=== PATIENT | male | born 1960 | race African-American/Black ===

== ENCOUNTER 2018-05-12 11:18 | Emergency (ER) | payer BC ==
[2018-05-12] MEDS ORDERED: KETOROLAC 30 MG/ML INJ ONE (12:25)
[2018-05-12] MEDS ORDERED: MORPHINE 4 MG/ML SYR ONE (12:25)
[2018-05-12] MEDS ORDERED: ONDANSETRON 4 MG/2 ML VIAL ONE (12:25)
[2018-05-12] MEDS ORDERED: NA CHLORIDE 0.9% 500 ML ONE (12:25)
--- NOTE | 2018-05-12 12:38 | RAD REPORT ---
EXAM DESCRIPTION: CT - Head Brain Wo Cont - 05/12/2018 12:29 pm CLINICAL HISTORY: Right-sided facial pain for 3 months right-sided facial biopsy not otherwise speci fied COMPARISON: None. TECHNIQUE: Axial 5 mm thick images of the head were obtained without IV contrast. All CT scans are performed using dose optimization technique as appropriate and may include automated exposure control or mA/KV adjustment according to patient size. FINDINGS: No intracranial hemorrhage, mass, edema or shift of mid-line structures. No acute infarcti on changes seen. No abnormal extra-axial fluid collections. Ventricles are normal. Physiologic calcif ications are present. Mastoid air cells are clear. There is significant mucosal thickening in the right maxillary sinus. So ft tissue fullness in the right nasal passage is not fully imaged. This may simply be a prominent tur binate. This finding is not further characterized on this study. No globe or orbital content abnormal ity. No acute bony findings. IMPRESSION: No acute intracranial finding. Right maxillary sinus mucosal thickening. Fullness of the right nasal passage tibia prominent turbina te. Polyposis is possible. This area is only partially imaged.
[2018-05-12 12:55] LABS: Absolute Lymphocytes (CBC) 1.4 K/uL (0.7-4.9); Absolute Monocytes 0.8 K/uL (0.1-1.3); Absolute Neutrophil 3.9 K/uL (1.8-8.0); Basophils % 1.1 % (0-1.3); Eosinophils % 3.4 % (0-4.4); Hematocrit 42.1 % (39.6-49.0); MCH 31.4 pg (27.0-35.0); MCV 91.9 fL (80-100); MPV 7.9 fL (7.6-11.3); Monocytes % 12.4 % (3.3-12.3); RBC Red Blood Cell Count 4.58 M/uL (4.33-5.43)
[2018-05-12 12:57] LABS: Albumin 3.2 g/dL (3.4-5.0); Bilirubin Total 0.5 mg/dL (0.2-1.0); Potassium 4.4 mmol/L (3.5-5.1); Protein, Total 6.6 g/dL (6.4-8.2)
--- NOTE | 2018-05-12 13:28 | EDPHYS ---
Physician Documentation [facility] Name: Luis Humphreys Age: 57 yrs Sex: Male : 1960 Arrival Date: 05/12/2018 Time: 11:21 Bed 28 Private MD: ED Physician Gurpreet Valdez HPI: 05/12 12:09 This 57 yrs old Black Male presents to ER via Ambulatory with complaints of Facial Pain.emil 12:09 The patient or guardian reports pain, tenderness. The complaints affect the right emil cheek, right ear, right cheondoism and right jaw. Onset: The symptoms/episode began/occurred 5 month(s) ago. Associated signs and symptoms: The patient has no apparent associated signs or symptoms. Severity of symptoms: At their worst the symptoms were mild, moderate, in the emergency department the symptoms are unchanged. The patient has not experienced similar symptoms in the past. Historical: - Allergies: 11:30 No Known Allergies; jl7 - Home Meds: 11:30 None [Active]; jl7 - PMHx: 11:30 Asthma; jl7 - PSHx: 11:30 None; jl7 - Immunization history:: Adult Immunizations unknown. - Social history:: Smoking status: Patient uses tobacco products, Quit about a week ago. - Ebola Screening: : No symptoms or risks identified at this time. - Family history:: not pertinent. ROS: 12:09 Constitutional: Negative for fever, chills, and weight loss, Eyes: Negative for injury, emil pain, redness, and discharge, ENT: Negative for injury, pain, and discharge, Neck: Negative for injury, pain, and swelling, Cardiovascular: Negative for chest pain, palpitations, and edema, Respiratory: Negative for shortness of breath, cough, wheezing, and pleuritic chest pain, Abdomen/GI: Negative for abdominal pain, nausea, vomiting, diarrhea, and constipation, Back: Negative for injury and pain, : Negative for injury, bleeding, discharge, and swelling, MS/Extremity: Negative for injury and deformity, Skin: Negative for injury, rash, and discoloration, Psych: Negative for depression, anxiety, suicide ideation, homicidal ideation, and hallucinations, Allergy/Immunology: Negative for hives, rash, and allergies, Endocrine: Negative for neck swelling, polydipsia, polyuria, polyphagia, and marked weight changes, Hematologic/Lymphatic: Negative for swollen nodes, abnormal bleeding, and unusual bruising. 12:09 Neuro: Positive for headache, of the right jaw and right cheondoism and right ear and right cheek. Exam: 12:09 Constitutional: This is a well developed, well nourished patient who is awake, alert, emil and in no acute distress. Eyes: Pupils equal round and reactive to light, extra-ocular motions intact. Lids and lashes normal. Conjunctiva and sclera are non-icteric and not injected. Cornea within normal limits. Periorbital areas with no swelling, redness, or edema. ENT: Nares patent. No nasal discharge, no septal abnormalities noted. Tympanic membranes are normal and external auditory canals are clear. Oropharynx with no redness, swelling, or masses, exudates, or evidence of obstruction, uvula midline. Mucous membranes moist. Neck: Trachea midline, no thyromegaly or masses palpated, and no cervical lymphadenopathy. Supple, full range of motion without nuchal rigidity, or vertebral point tenderness. No Meningismus. Chest/axilla: Normal chest wall appearance and motion. Nontender with no deformity. No lesions are appreciated. Cardiovascular: Regular rate and rhythm with a normal S1 and S2. No gallops, murmurs, or rubs. Normal PMI, no JVD. No pulse deficits. Respiratory: Lungs have equal breath sounds bilaterally, clear to auscultation and percussion. No rales, rhonchi or wheezes noted. No increased work of breathing, no retractions or nasal flaring. Abdomen/GI: Soft, non-tender, with normal bowel sounds. No distension or tympany. No guarding or rebound. No evidence of tenderness throughout. Back: No spinal tenderness. No costovertebral tenderness. Full range of motion. Male : Normal genitalia with no discharge or lesions. Skin: Warm, dry with normal turgor. Normal color with no rashes, no lesions, and no evidence of cellulitis. MS/ Extremity: Pulses equal, no cyanosis. Neurovascular intact. Full, normal range of motion. Neuro: Awake and alert, GCS 15, oriented to person, place, time, and situation. Cranial nerves II-XII grossly intact. Motor strength 5/5 in all extremities. Sensory grossly intact. Cerebellar exam normal. Normal gait. Psych: Awake, alert, with orientation to person, place and time. Behavior, mood, and affect are within normal limits. 12:09 Head/face: Noted is tenderness, Sinus tenderness, is not appreciated. Vital Signs: 11:30 BP 118 / 67; Pulse 78; Resp 16 S; Temp 98.3(O); Pulse Ox 98% on R/A; Weight 104.33 kg jl7 (R); Height 6 ft. 1 in. (185.42 cm) (R); Pain 9/10; 12:35 BP 132 / 63; Pulse 55; Resp 16; Pulse Ox 97% on R/A; aj 13:40 BP 116 / 72; Pulse 62; Resp 15; Pulse Ox 99% on R/A; aj 11:30 Body Mass Index 30.34 (104.33 kg, 185.42 cm) jl7 Rylee Coma Score: 12:09 Eye Response: spontaneous(4). Verbal Response: oriented(5). Motor Response: obeys [facility] commands(6). Total: 15. MDM: 11:33 Patient medically screened. [facility] 12:12 Data reviewed: vital signs, nurses notes, lab test result(s), EKG, radiologic studies, [facility] CT scan, plain films. 05/12 12:06 Order name: CBC with Diff [facility] 05/12 12:06 Order name: Comprehensive Metabolic Panel; Complete Time: 13:27 [facility] 05/12 12:06 Order name: Sed Rate [facility] 05/12 12:06 Order name: CT Head Brain wo Cont; Complete Time: 13:27 [facility] 05/12 12:59 Order name: CBC Smear Scan EDMD 05/12 13:27 Order name: PO challenge: juice; Complete Time: 13:28 [facility] Administered Medications: 12:34 Drug: morphine 2 mg Route: IVP; Site: right antecubital; aj 12:50 Follow up: Response: Pain is decreased aj 12:34 Drug: Zofran 4 mg Route: IVP; Site: right antecubital; aj 12:50 Follow up: Response: Pain is decreased aj 12:34 Drug: TORadol 30 mg Route: IVP; Site: right antecubital; aj 12:50 Follow up: Response: Pain is decreased aj 12:35 Drug: NS 0.9% 500 ml Route: IV; Rate: bolus; Site: right antecubital; aj 13:42 Follow up: Response: No adverse reaction; IV Status: Completed infusion; IV Intake: aj 500ml 12:35 Drug: morphine 2 mg Route: IVP; Site: right antecubital; aj 12:49 Follow up: Response: Pain is decreased aj 13:40 Drug: TEGretol 200 mg Route: PO; aj 13:40 Follow up: Response: Medication administered at discharge. aj Disposition: 05/12/18 13:28 Discharged to Home. Impression: Headache, Trigeminal neuralgia. - Condition is Stable. - Discharge Instructions: General Headache Without Cause, Hypoglycemia, Neuropathic Pain, Trigeminal Neuralgia, General Headache Without Cause, [id number], Hypoglycemia, [id number]. - Prescriptions for gabapentin 300 mg Oral capsule - take 1 capsule by ORAL route 3 times per day; 90 capsule. Tegretol 200 mg Oral Tablet - take 1 tablet by ORAL route every 12 hours; 30 tablet. Tylenol- Codeine #3 300-30 mg Oral Tablet - take 2 tablet by ORAL route every 6 hours As needed; 30 tablet. - Medication Reconciliation Form, Thank You Letter, Antibiotic Education, Prescription Opioid Use form. - Follow up: Private Physician; When: 2 - 3 days; Reason: Recheck today's complaints, Continuance of care, Re-evaluation by your physician. Follow up: Leighton Vyas; When: 2 - 3 days; Reason: Recheck today's complaints, Re-evaluation by your physician. - Problem is new. - Symptoms have improved. Signatures: Dispatcher [employer] EDCherelle Hayden RN RN aj Anderson, Corey, MD MD cha Leal, Jahala, RN RN jl7 Corrections: (The following items were deleted from the chart) 13:42 13:28 05/12/2018 13:28 Discharged to Home. Impression: Headache; Trigeminal neuralgia. aj Condition is Stable. Discharge Instructions: General Headache Without Cause, Neuropathic Pain, Trigeminal Neuralgia, General Headache Without Cause, [id number]. Prescriptions for gabapentin 300 mg Oral capsule - take 1 capsule by ORAL route 3 times per day; 90 capsule, Tegretol 200 mg Oral Tablet - take 1 tablet by ORAL route every 12 hours; 30 tablet, Tylenol-Codeine #3 300-30 mg Oral Tablet - take 2 tablet by ORAL route every 6 hours As needed; 30 tablet. and Forms are Medication Reconciliation Form, Thank You Letter, Antibiotic Education, Prescription Opioid Use. Follow up: Private Physician; When: 2 - 3 days; Reason: Recheck today's complaints, Continuance of care, Re-evaluation by your physician. Follow up: Leighton Vyas; When: 2 - 3 days; Reason: Recheck today's complaints, Re-evaluation by your physician. Problem is new. Symptoms have improved. emil
--- NOTE | 2018-05-12 13:28 | ER ---
Nurse's Notes [facility] Name: Luis Humphreys Age: 57 yrs Sex: Male : 1960 Arrival Date: 05/12/2018 Time: 11:21 Bed 28 Private MD: Diagnosis: Headache;Trigeminal neuralgia Presentation: 05/12 11:25 Presenting complaint: Patient states: C/O right sided face pain x 3 months, throbbing jl7 pain. Had teeth pulled on that side. Had a biopsy done by an oral surgeon in [place]. Transition of care: patient was not received from another setting of care. Onset of symptoms was January 2018. Risk Assessment: Do you want to hurt yourself or someone else? Patient reports no desire to harm self or others. Initial Sepsis Screen: Does the patient meet any 2 criteria? No. Patient's initial sepsis screen is negative. Does the patient have a suspected source of infection? No. Patient's initial sepsis screen is negative. Care prior to arrival: None. 11:25 Method Of Arrival: Ambulatory [facility] 11:25 Acuity: GERALD 4 jl7 Historical: - Allergies: 11:30 No Known Allergies; jl7 - Home Meds: 11:30 None [Active]; jl7 - PMHx: 11:30 Asthma; jl7 - PSHx: 11:30 None; jl7 - Immunization history:: Adult Immunizations unknown. - Social history:: Smoking status: Patient uses tobacco products, Quit about a week ago. - Ebola Screening: : No symptoms or risks identified at this time. - Family history:: not pertinent. Screenin:30 Abuse screen: Denies threats or abuse. Denies injuries from another. Nutritional aj screening: No deficits noted. Tuberculosis screening: No symptoms or risk factors identified. Fall Risk None identified. Assessment: 12:27 General: Appears in no apparent distress. comfortable, Behavior is calm, cooperative, aj appropriate for age. Pain: Complains of pain in right jaw Pain began 2 months ago Is intermittent, Aggravated by eating, drinking, cold. Neuro: Level of Consciousness is awake, alert, obeys commands, Oriented to person, place, time, situation. Cardiovascular: Denies chest pain. Respiratory: Airway is patent Respiratory effort is even, unlabored, Respiratory pattern is regular, symmetrical. GI: No signs and/or symptoms were reported involving the gastrointestinal system. Abdomen is flat. EENT: Reports pain in right jaw. Derm: Skin is intact, is healthy with good turgor, Skin is pink, warm \T\ dry. normal. 13:40 Reassessment: Patient appears in no apparent distress at this time. No changes from aj previously documented assessment. Patient and/or family updated on plan of care and expected duration. Pain level reassessed. Patient resting comfortably in bed with eyes closed upon my entering the room for discharge. Vital Signs: 11:30 BP 118 / 67; Pulse 78; Resp 16 S; Temp 98.3(O); Pulse Ox 98% on R/A; Weight 104.33 kg jl7 (R); Height 6 ft. 1 in. (185.42 cm) (R); Pain 9/10; 12:35 BP 132 / 63; Pulse 55; Resp 16; Pulse Ox 97% on R/A; aj 13:40 BP 116 / 72; Pulse 62; Resp 15; Pulse Ox 99% on R/A; aj 11:30 Body Mass Index 30.34 (104.33 kg, 185.42 cm) jl7 [place] Coma Score: 12:09 Eye Response: spontaneous(4). Verbal Response: oriented(5). Motor Response: obeys emil commands(6). Total: 15. ED Course: 11:21 Patient arrived in ED. mr 11:29 Triage completed. jl7 11:30 Arm band placed on right wrist. jl7 11:32 Gurpreet Valdez MD is Attending Physician. emil 12:18 Cherelle Bocanegra, JEAN PAUL is Primary Nurse. 12:24 CT completed. Patient tolerated procedure well. Patient moved to CT via wheelchair. Patient moved back from CT. 12:29 CT Head Brain wo Cont In Process Unspecified. EDMS 12:30 Patient has correct armband on for positive identification. Bed in low position. Call aj light in reach. Side rails up X 1. Pulse ox on. NIBP on. 12:31 Inserted saline lock: 20 gauge in right antecubital area, using aseptic technique. aj Blood collected. 13:27 Leighton Vyas MD is Referral Physician. emil 13:40 No provider procedures requiring assistance completed. IV discontinued, intact, aj bleeding controlled, No redness/swelling at site. Pressure dressing applied. Administered Medications: 12:34 Drug: morphine 2 mg Route: IVP; Site: right antecubital; aj 12:50 Follow up: Response: Pain is decreased aj 12:34 Drug: Zofran 4 mg Route: IVP; Site: right antecubital; aj 12:50 Follow up: Response: Pain is decreased aj 12:34 Drug: TORadol 30 mg Route: IVP; Site: right antecubital; aj 12:50 Follow up: Response: Pain is decreased aj 12:35 Drug: NS 0.9% 500 ml Route: IV; Rate: bolus; Site: right antecubital; aj 13:42 Follow up: Response: No adverse reaction; IV Status: Completed infusion; IV Intake: aj 500ml 12:35 Drug: morphine 2 mg Route: IVP; Site: right antecubital; aj 12:49 Follow up: Response: Pain is decreased aj 13:40 Drug: TEGretol 200 mg Route: PO; aj 13:40 Follow up: Response: Medication administered at discharge. aj Intake: 13:42 IV: 500ml; Total: 500ml. aj Outcome: 13:28 Discharge ordered by . emil 13:40 Discharged to home ambulatory. aj 13:40 Condition: good 13:40 Discharge instructions given to patient, Instructed on discharge instructions, follow up and referral plans. medication usage, Demonstrated understanding of instructions, follow-up care, medications, Prescriptions given X 3. 13:42 Patient left the ED. aj Signatures: Dispatcher [employer] Cherelle Harper, RN Gurpreet Her MD MD cha Rivera, Maria mr Jones, Susan sj Leal, Jahala, RN RN jl7
[2018-05-12] MEDS ORDERED: CARBAMAZEPINE 200 MG TAB ONE (13:39)
[2018-05-12 16:19] LABS: Blood Morphology Comment NOT SEEN (NOT SEEN); Platelet Estimate ADEQ; Urine White Blood Cell Casts OK
== END 2018-05-12 13:42 | disposition home or self-care (01) ==
LOC: ER 11:18
DX: G50.0 Trigeminal neuralgia (principal); Z87.891 Personal history of nicotine dependence
CPT/HCPCS: 36415; 70450; 80053; 85025; 85652; 96361; 96374; 96375; 99284; J2405

== ENCOUNTER 2019-09-01 11:54 | Emergency (ER) | payer BC ==
[2019-09-01 12:54] LABS: Protime INR 1.15
[2019-09-01 12:55] LABS: Hematocrit 38.8 % (39.6-49.0); Lymphocytes % 24.7 % (15.3-44.8); MPV 6.5 fL (7.6-11.3); RBC Red Blood Cell Count 4.24 M/uL (4.33-5.43)
--- NOTE | 2019-09-01 13:03 | RAD REPORT ---
EXAM DESCRIPTION: CT - Head Brain Wo Cont - 09/01/2019 12:56 pm CLINICAL HISTORY: Dementia/generalize weakness COMPARISON: 2018 TECHNIQUE: Computed axial tomography of the head was obtained. IV contrast was not requested. All CT scans are performed using dose optimization technique as appropriate and may include automated exposure control or mA/KV adjustment according to patient size. FINDINGS: An intracranial bleed is not seen . The ventricles are normal in caliber. No extra-axial fluid collection is noted. Fluid is present within the maxillary sinuses. Fluid is present within the ethmoid sinus. Mucoperiost eal thickening involves frontal sphenoid sinus. IMPRESSION: No acute intracranial abnormality is seen. If patient's symptoms persist MRI of the bra in would be recommended. Acute sinusitis
[2019-09-01 13:11] LABS: ALT/SGPT 32 U/L (12-78); AST/SGOT 19 U/L (15-37); Albumin 3.4 g/dL (3.4-5.0); Alkaline Phosphatase 102 U/L (45-117); BUN Blood Urea Nitrogen 9 mg/dL (7-18); Bicarbonate 32 mmol/L (21-32); Bilirubin Direct 0.1 mg/dL (0-0.2); Bilirubin Total 0.3 mg/dL (0.2-1.0); Glucose Level 108 mg/dL (74-106); NT PRO-BNP 21 pg/mL (<125); Potassium 4.1 mmol/L (3.5-5.1); Sodium Level 143 mmol/L (136-145); Troponin (Emerg Dept Use Only) < 0.02 ng/mL (0.0-0.045)
--- NOTE | 2019-09-01 13:14 | RAD REPORT ---
EXAM DESCRIPTION: RAD - Chest Single View - 09/01/2019 12:55 pm CLINICAL HISTORY: weakness Chest pain. COMPARISON: Chest Pa And Lat (2 Views) dated 11/23/2016; Chest Single View dated 11/23/2016; CHEST PA AND LAT 2 VIEW dated 02/13/2015 FINDINGS: Portable technique limits examination quality. The lungs are grossly clear. The heart is normal in size. No displaced fractures. IMPRESSION: No acute intrathoracic process suspected.
--- NOTE | 2019-09-01 14:24 | RAD REPORT ---
EXAM DESCRIPTION: MRI - Brain Wo Cont - 09/01/2019 2:08 pm CLINICAL HISTORY: SLURRED SPEECH COMPARISON: Head Brain Wo Cont dated 09/01/2019; Head Brain Wo Cont dated 05/12/2018 TECHNIQUE: Multi-sequence, multiplanar MR imaging of the brain was performed without contrast. FINDINGS: No intracranial hemorrhage, hydrocephalus or extra-axial fluid collections.Minimal T2 and FLAIR hyperintensity in the periventricular and deep white matter seen. No edema or shift of midline structures. No findings to suspect brain mass. DWI is negative for acute CVA. Midline structures are normally formed. Moderate mucoperiosteal thickening is seen involving the frontal, anterior ethmoid and maxillary sinu ses. IMPRESSION: No acute CVA or other acute intracranial abnormality detected. Moderate sinus disease is seen.
--- NOTE | 2019-09-01 14:43 | ER ---
Nurse's Notes [facility] [place] Name: Luis Humphreys Age: 58 yrs Sex: Male : 1960 Arrival Date: 09/01/2019 Time: 11:58 Bed 30 Private MD: Diagnosis: Paresthesia of skin Presentation: 09/01 12:04 Presenting complaint: Patient states: Weakness to both legs and slurred speech for the aj1 past week, states that the symptoms come and go. Transition of care: patient was not received from another setting of care. Onset of symptoms was 2018. Risk Assessment: Do you want to hurt yourself or someone else? Patient reports no desire to harm self or others. Initial Sepsis Screen: Does the patient meet any 2 criteria? No. Patient's initial sepsis screen is negative. Does the patient have a suspected source of infection? No. Patient's initial sepsis screen is negative. Care prior to arrival: None. 12:04 Method Of Arrival: Ambulatory aj1 12:04 Acuity: GERALD 3 aj1 Triage Assessment: 12:08 General: Appears in no apparent distress. comfortable, Behavior is calm, cooperative. aj1 Pain: Denies pain. Neuro: Level of Consciousness is awake, alert, obeys commands, Reports weakness to both legs, intermittent slurred speech. Cardiovascular: Patient's skin is warm and dry. Respiratory: Airway is patent Respiratory effort is even, unlabored, Respiratory pattern is regular, symmetrical. Historical: - Allergies: 12:08 No Known Allergies; aj1 - Home Meds: 12:08 gabapentin 600 mg oral tab 2 tab twice daily [Active]; tramadol 50 mg Oral tab 1 tab aj1 every 6 hours [Active]; carbamazepine 100 mg Oral chew 2 tabs every 12 hours [Active]; - PMHx: 12:08 Asthma; nerve pain right side of face; aj1 - Immunization history:: Flu vaccine is not up to date. - Social history:: Smoking status: Patient/guardian denies using tobacco. - Ebola Screening: : Patient denies travel to an Ebola-affected area in the 21 days before illness onset. Screenin:40 Abuse screen: Denies threats or abuse. Nutritional screening: No deficits noted. vc Tuberculosis screening: No symptoms or risk factors identified. Fall Risk Gait- Normal/Bed Rest/Wheelchair (0 pts). Assessment: 12:40 VAN Scoring: Arm Drift: Minor drift. vc 12:40 General: Appears in no apparent distress. comfortable, Behavior is calm, cooperative. vc Pain: Denies pain. Neuro: Level of Consciousness is awake, alert, obeys commands, Oriented to person, place, time, Speech is normal, Facial symmetry appears normal. Cardiovascular: Capillary refill is sluggish in bilateral fingers. Respiratory: Airway is patent Respiratory effort is even, unlabored. GI: Abdomen is round non-distended. : No signs and/or symptoms were reported regarding the genitourinary system. EENT: No deficits noted. Derm: Skin is intact, is healthy with good turgor, Skin temperature is warm. Musculoskeletal: Range of motion: intact in all extremities. 13:00 Reassessment: Patient is alert, oriented x 3, equal unlabored respirations, skin vc warm/dry/pink. patient c/o being cold, brought blanket.. 14:20 Reassessment: Patient back from MRI. No complaints or needs at this time.. vc 15:00 Reassessment: Patient and/or family updated on plan of care and expected duration. Pain vc level reassessed. Patient denies pain at this time. 16:00 Reassessment: Patient is alert, oriented x 3, equal unlabored respirations, skin vc warm/dry/pink. Patient denies pain at this time. Patient states symptoms have not improved. Vital Signs: 12:08 BP 137 / 92; Pulse 70; Resp 18; Temp 98.5; Pulse Ox 98% on R/A; Weight 104.33 kg (R); aj1 Height 6 ft. 1 in. (185.42 cm) (R); Pain 0/10; 12:27 BP 141 / 75; Pulse 58; Resp 10; Temp 98.4(O); Pulse Ox 99% on R/A; Pain 0/10; vc 13:00 BP 143 / 66; Pulse 55; Resp 11; Temp 98.5; Pulse Ox 99% ; Pain 0/10; vc 14:22 BP 150 / 72; Pulse 51; Resp 12; Pulse Ox 98% on R/A; vc 15:00 BP 148 / 70; Pulse 55; Resp 12; Pulse Ox 96% on R/A; Pain 0/10; vc 16:00 BP 146 / 70; Pulse 53; Resp 10; Pulse Ox 100% on R/A; Pain 0/10; vc 12:08 Body Mass Index 30.34 (104.33 kg, 185.42 cm) aj1 NIH Stroke Scale Scores: 12:33 NIHSS Score: 0 la1 12:40 NIHSS Score: 0 vc ED Course: 11:58 Patient arrived in ED. mr 12:06 Triage completed. aj1 12:08 Arm band placed on Patient placed in an exam room. aj1 12:10 Malcom Post [facility]C [facility] la1 12:10 Jake Vazquez MD is Attending Physician. la1 12:20 Patient has correct armband on for positive identification. Fall risk band placed. Bed vc in low position. Call light in reach. Side rails up X 1. quality assurance monitor body on. Pulse ox on. NIBP on. Warm blanket given. 12:34 Sydnee Mena, RN is Primary Nurse. vc 12:41 Initial lab(s) drawn, by vt, sent to lab. Inserted saline lock: 20 gauge in right aa5 antecubital area, using aseptic technique. Blood collected. 12:55 XRAY Chest (1 view) In Process Unspecified. EDMS 12:55 CT Head Brain wo Cont In Process Unspecified. EDMS 13:09 EKG done, by technology specialist. reviewed by Malcom BEE. at1 13:49 Patient moved to MRI via wheelchair. em2 13:56 MRI - Brain Wo Cont In Process Unspecified. EDMS 14:42 Leighton Vyas MD is Referral Physician. la1 16:48 No provider procedures requiring assistance completed. IV discontinued, intact, vc bleeding controlled, No redness/swelling at site. Pressure dressing applied. Administered Medications: No medications were administered Outcome: 14:42 Discharge ordered by . la1 16:44 Patient left the ED. vc 16:49 Discharged to home vc 16:49 Condition: good 16:49 Discharge instructions given to patient, Instructed on discharge instructions, follow up and referral plans. Demonstrated understanding of instructions, follow-up care. NIH Stroke Scale - NIH Stroke Score Date: 09/01/2019 Time: 12:33 Total Score = 0 1a. Level of Consciousness (LOC) - 0(Alert) 1b. Level of Consciousness (LOC) (Year \T\ Age) - 0(Both) 1c. LOC Commands (Open \T\ Closes Eyes/Hand Ii Blocker) - 0(Both) 2. Best Gaze (Lateral Gaze Paresis) - 0(Normal) 3. Visual Field Loss - 0(No visual loss) 4. Facial Palsy - 0(Normal) 5a. Left Arm: Motor (10-second hold) - 0(No drift) 5b. Right Arm: Motor (10-second hold) - 0(No drift) 6a. Left Leg: Motor (5-second hold - always test supine) - 0(No drift) 6b. Right Leg: Motor (5-second hold - always test supine) - 0(No drift) 7. Limb Ataxia (finger/nose \T\ heel/cruz - test with eyes open) - 0(Absent) 8. Sensory Loss (pinprick arms/legs/face) - 0(Normal) 9. Best Language: Aphasia (description/naming/reading) - 0(No aphasia) 10. Dysarthria (speech clarity - read or repeat words) - 0(Normal) 11. Extinction and Inattention (visual/tactile/auditory/spatial/personal) - 0(No abnormality) Initials: la1 NIH Stroke Scale - NIH Stroke Score Date: 09/01/2019 Time: 12:40 Total Score = 0 1a. Level of Consciousness (LOC) - 0(Alert) 1b. Level of Consciousness (LOC) (Year \T\ Age) - 0(Both) 1c. LOC Commands (Open \T\ Closes Eyes/Hand Ii Blocker) - 0(Both) 2. Best Gaze (Lateral Gaze Paresis) - 0(Normal) 3. Visual Field Loss - 0(No visual loss) 4. Facial Palsy - 0(Normal) 5a. Left Arm: Motor (10-second hold) - 0(No drift) 5b. Right Arm: Motor (10-second hold) - 0(No drift) 6a. Left Leg: Motor (5-second hold - always test supine) - 0(No drift) 6b. Right Leg: Motor (5-second hold - always test supine) - 0(No drift) 7. Limb Ataxia (finger/nose \T\ heel/cruz - test with eyes open) - 0(Absent) 8. Sensory Loss (pinprick arms/legs/face) - 0(Normal) 9. Best Language: Aphasia (description/naming/reading) - 0(No aphasia) 10. Dysarthria (speech clarity - read or repeat words) - 0(Normal) 11. Extinction and Inattention (visual/tactile/auditory/spatial/personal) - 0(No abnormality) Initials: vc Signatures: Dispatcher [employer] Caitie Bolanos RN RN aj1 Romy Serna, JEAN PAUL Lomas RN aa5 Refugio Gallardo em2 Cherelle Siegel, qa reviewer EKG Tat1 Malcom Post FNP-[place] EXCAVATION LABORER-Cla1 Sydnee Mena RN RN vc Corrections: (The following items were deleted from the chart) 16:47 12:40 Patient has been NPO before screening. The patient is alert, and able to vc follow commands. The patient does not exhibit slurred or garbled speech. The patient is not exhibiting difficulty speaking. The patient does not exhibit difficulty understanding words. The patient is able to swallow own secretions with no drooling or need for suction. Patient tolerated one teaspoon of water. No drooling, immediate coughing, gurgling, or clearing of the throat was noted. The patient passed the bedside swallow screening. Oral medications may be given as ordered. Contact Physician for further diet orders. Provider notified of bedside swallow screening results: Malcom FINLEY-C vc 16:47 12:40 T-PA (Activase) Screening: Contraindications: Rapidly improving condition vc or minor deficit: Yes. vc 17:08 17:01 General: Appears in no apparent distress. comfortable, Behavior is calm, vc cooperative, vc 17:08 17:01 Pain: Denies pain. vc vc 17: 17:01 Neuro: Level of Consciousness is awake, alert, obeys commands, Oriented vc to person, place, time, Speech is normal, Facial symmetry appears normal, vc 17: 17:01 Cardiovascular: Capillary refill is sluggish in bilateral fingers vc vc 17:08 17:01 Respiratory: Airway is patent Respiratory effort is even, unlabored, vc vc 17:08 17:01 GI: Abdomen is round non-distended, vc vc 17: 17:01 : No signs and/or symptoms were reported regarding the genitourinary vc system. vc 17:08 17:01 EENT: No deficits noted. vc vc 17:08 17:01 Derm: Skin is intact, is healthy with good turgor, Skin temperature is vc warm vc : 17:01 Musculoskeletal: Range of motion: intact in all extremities, vc vc
--- NOTE | 2019-09-01 14:44 | EDPHYS ---
Physician Documentation [facility] Name: Luis Humphreys Age: 58 yrs Sex: Male : 1960 Arrival Date: 09/01/2019 Time: 11:58 Bed 30 Private MD: ED Physician Jake Vazquez HPI: 09/01 12:30 This 58 yrs old Black Male presents to ER via Ambulatory with complaints of Leg la1 weakness, Slurred Speech. 12:30 Onset: The symptoms/episode began/occurred 2 week(s) ago. Associated signs and la1 symptoms: Pertinent negatives: diarrhea, earache, headache, seizure. Modifying factors: The patient symptoms are alleviated by nothing, the patient symptoms are aggravated by nothing. The patient has experienced similar episodes in the past. Pt reports he has had intermittent CHEMA leg "weakness/tingling" in addition to intermittent "stuttering" for the last month. Has had a few episodes, states if he raises his voice he can hear the difference more. . Historical: - Allergies: 12:08 No Known Allergies; aj1 - Home Meds: 12:08 gabapentin 600 mg oral tab 2 tab twice daily [Active]; tramadol 50 mg Oral tab 1 tab aj1 every 6 hours [Active]; carbamazepine 100 mg Oral chew 2 tabs every 12 hours [Active]; - PMHx: 12:08 Asthma; nerve pain right side of face; aj1 - Immunization history:: Flu vaccine is not up to date. - Social history:: Smoking status: Patient/guardian denies using tobacco. - Ebola Screening: : Patient denies travel to an Ebola-affected area in the 21 days before illness onset. ROS: 12:32 Constitutional: Negative for fever, chills, and weight loss, Eyes: Negative for injury, la1 pain, redness, and discharge, ENT: Negative for injury, pain, and discharge, Neck: Negative for injury, pain, and swelling, Cardiovascular: Negative for chest pain, palpitations, and edema, Respiratory: Negative for shortness of breath, cough, wheezing, and pleuritic chest pain, Abdomen/GI: Negative for abdominal pain, nausea, vomiting, diarrhea, and constipation, Back: Negative for injury and pain, : Negative for injury, bleeding, discharge, and swelling, MS/Extremity: Negative for injury and deformity. 12:32 Neuro: Positive for speech changes, tingling, weakness, of the right leg and left leg. Exam: 12:33 Constitutional: This is a well developed, well nourished patient who is awake, alert, la1 and in no acute distress. Head/Face: Normocephalic, atraumatic. Eyes: Pupils equal round and reactive to light, extra-ocular motions intact. Periorbital areas with no swelling, redness, or edema. ENT: Nares patent. No nasal discharge, no septal abnormalities noted. Tympanic membranes are normal and external auditory canals are clear. Oropharynx with no redness, swelling, or masses, exudates, or evidence of obstruction, uvula midline. Mucous membranes moist. Neck: Trachea midline, no thyromegaly or masses palpated, and no cervical lymphadenopathy. Supple, full range of motion without nuchal rigidity, or vertebral point tenderness. No Meningismus. Chest/axilla: Normal chest wall appearance and motion. Nontender with no deformity. No lesions are appreciated. Cardiovascular: Regular rate and rhythm with a normal S1 and S2. No gallops, murmurs, or rubs. Normal PMI, no JVD. No pulse deficits. Respiratory: Lungs have equal breath sounds bilaterally, clear to auscultation No rales, rhonchi or wheezes noted. No increased work of breathing, no retractions or nasal flaring. Abdomen/GI: Soft, non-tender, with normal bowel sounds. No distension or tympany. No guarding or rebound. No evidence of tenderness throughout. 12:33 Neuro: Orientation: is normal, to person, place, time \\T\\ situation. Mentation: is normal, Memory: is normal, Cranial nerves: CN II- XII are normal as tested, visual snell are intact. Facial palsy and sensory deficits are absent. Nystagmus is absent. Speech is slowed, Tongue strength is normal, Cerebellar function: is grossly normal, normal finger to nose testing, heel to cruz testing is normal, Motor: is normal. 13:10 ECG was reviewed by the Attending Physician. la1 Vital Signs: 12:08 BP 137 / 92; Pulse 70; Resp 18; Temp 98.5; Pulse Ox 98% on R/A; Weight 104.33 kg (R); aj1 Height 6 ft. 1 in. (185.42 cm) (R); Pain 0/10; 12:27 BP 141 / 75; Pulse 58; Resp 10; Temp 98.4(O); Pulse Ox 99% on R/A; Pain 0/10; vc 13:00 BP 143 / 66; Pulse 55; Resp 11; Temp 98.5; Pulse Ox 99% ; Pain 0/10; vc 14:22 BP 150 / 72; Pulse 51; Resp 12; Pulse Ox 98% on R/A; vc 15:00 BP 148 / 70; Pulse 55; Resp 12; Pulse Ox 96% on R/A; Pain 0/10; vc 16:00 BP 146 / 70; Pulse 53; Resp 10; Pulse Ox 100% on R/A; Pain 0/10; vc 12:08 Body Mass Index 30.34 (104.33 kg, 185.42 cm) aj1 NIH Stroke Scale Scores: 12:33 NIHSS Score: 0 la1 12:40 NIHSS Score: 0 vc MDM: 12:10 Patient medically screened. la1 14:40 Data reviewed: vital signs, nurses notes, lab test result(s), EKG, radiologic studies, la1 CT scan, MRI, plain films. Counseling: I had a detailed discussion with the patient and/or guardian regarding: the historical points, exam findings, and any diagnostic results supporting the discharge/admit diagnosis, the presence of at least one elevated blood pressure reading (>120/80) during this emergency department visit, lab results, radiology results, the need for outpatient follow up, a neurologist, smoking cessation. Special discussion: I discussed with the patient/guardian in detail that at this point there is no indication for admission to the hospital. It is understood, however, that if the symptoms persist or worsen the patient needs to return immediately for re-evaluation. I discussed with the patient the need to follow-up with the PCP/specialist for the noted incidental finding on X-ray/CT scanning. ED course: Pt with normal MRI head, normal CT head, normal cardiac workup. Speech is clear, no objective weakness. Pt to FU with Dr. Vyas who he has seen in the past. 09/01 12:28 Order name: Basic Metabolic Panel; Complete Time: 13:18 la1 09/01 12:28 Order name: CBC with Diff; Complete Time: 13:12 la1 09/01 12:28 Order name: LFT's; Complete Time: 13:18 la09/01 12:28 Order name: Magnesium; Complete Time: 13:18 la09/01 12:28 Order name: NT PRO-BNP; Complete Time: 13:18 la09/01 12:28 Order name: PT-INR; Complete Time: 13:12 la09/01 12:28 Order name: Troponin (emerg Dept Use Only); Complete Time: 13:18 la09/01 12:28 Order name: XRAY Chest (1 view); Complete Time: 13:18 la09/01 12:28 Order name: EKG; Complete Time: 12:29 la09/01 12:28 Order name: Cardiac monitoring; Complete Time: 12:44 la09/01 12:28 Order name: EKG - Nurse/Tech; Complete Time: 13:09 09/01 12:28 Order name: IV Saline Lock; Complete Time: 12:44 la09/01 12:28 Order name: CT Head Brain wo Cont; Complete Time: 13:12 la09/01 13:20 Order name: MRI - Brain Wo Cont; Complete Time: 14:33 la09/01 12:28 Order name: Labs collected and sent; Complete Time: 12:44 la09/01 12:28 Order name: O2 Per Protocol; Complete Time: 12:44 la09/01 12:28 Order name: O2 Sat Monitoring; Complete Time: 12:44 la1 EC:10 Rate is 55 beats/min. Rhythm is regular. QRS [place] is Normal. NE interval is normal. QRS la1 interval is normal. QT interval is normal. T waves are Normal. No ST changes noted. Reviewed by me. Administered Medications: No medications were administered Disposition: 17:45 Co-signature as Attending Physician, Jake Vazquez MD. rn Disposition: 09/01/19 14:42 Discharged to Home. Impression: Paresthesia of skin. - Condition is Stable. - Discharge Instructions: Paresthesia, Weakness, Peripheral Neuropathy. - Medication Reconciliation Form, Thank You Letter form. - Follow up: Leighton Vyas MD; When: 2 - 3 days; Reason: Recheck today's complaints, Re-evaluation by your physician. Follow up: Emergency Department; When: As needed; Reason: Worsening of condition. - Problem is an ongoing problem. - Symptoms have improved. NIH Stroke Scale - NIH Stroke Score Date: 09/01/2019 Time: 12:33 Total Score = 0 1a. Level of Consciousness (LOC) - 0(Alert) 1b. Level of Consciousness (LOC) (Year \\T\\ Age) - 0(Both) 1c. LOC Commands (Open \\T\\ Closes Eyes/Desk Clerk) - 0(Both) 2. Best Gaze (Lateral Gaze Paresis) - 0(Normal) 3. Visual Field Loss - 0(No visual loss) 4. Facial Palsy - 0(Normal) 5a. Left Arm: Motor (10-second hold) - 0(No drift) 5b. Right Arm: Motor (10-second hold) - 0(No drift) 6a. Left Leg: Motor (5-second hold - always test supine) - 0(No drift) 6b. Right Leg: Motor (5-second hold - always test supine) - 0(No drift) 7. Limb Ataxia (finger/nose \\T\\ heel/cruz - test with eyes open) - 0(Absent) 8. Sensory Loss (pinprick arms/legs/face) - 0(Normal) 9. Best Language: Aphasia (description/naming/reading) - 0(No aphasia) 10. Dysarthria (speech clarity - read or repeat words) - 0(Normal) 11. Extinction and Inattention (visual/tactile/auditory/spatial/personal) - 0(No abnormality) Initials: la1 NIH Stroke Scale - NIH Stroke Score Date: 09/01/2019 Time: 12:40 Total Score = 0 1a. Level of Consciousness (LOC) - 0(Alert) 1b. Level of Consciousness (LOC) (Year \\T\\ Age) - 0(Both) 1c. LOC Commands (Open \\T\\ Closes Eyes/Desk Clerk) - 0(Both) 2. Best Gaze (Lateral Gaze Paresis) - 0(Normal) 3. Visual Field Loss - 0(No visual loss) 4. Facial Palsy - 0(Normal) 5a. Left Arm: Motor (10-second hold) - 0(No drift) 5b. Right Arm: Motor (10-second hold) - 0(No drift) 6a. Left Leg: Motor (5-second hold - always test supine) - 0(No drift) 6b. Right Leg: Motor (5-second hold - always test supine) - 0(No drift) 7. Limb Ataxia (finger/nose \\T\\ heel/cruz - test with eyes open) - 0(Absent) 8. Sensory Loss (pinprick arms/legs/face) - 0(Normal) 9. Best Language: Aphasia (description/naming/reading) - 0(No aphasia) 10. Dysarthria (speech clarity - read or repeat words) - 0(Normal) 11. Extinction and Inattention (visual/tactile/auditory/spatial/personal) - 0(No abnormality) Initials: vc Signatures: Dispatcher [employer] EDMS Caitie Burch, RN RN aj1 Jake Vazquez MD MD rn Sincere, Malcom, OVERNIGHT CASHIER-C OVERNIGHT CASHIER-Cla1 Sydnee Mena RN RN vc Corrections: (The following items were deleted from the chart) 14:43 14:42 09/01/2019 14:42 Discharged to Home. Impression: Paresthesia of skin. la1 Condition is Stable. Forms are Medication Reconciliation Form, Thank You Letter, Antibiotic Education, Prescription Opioid Use. Follow up: Leighton Vyas; When: 2 - 3 days; Reason: Recheck today's complaints, Re-evaluation by your physician. Follow up: Emergency Department; When: As needed; Reason: Worsening of condition. la1 16:44 14:43 09/01/2019 14:42 Discharged to Home. Impression: Paresthesia of skin. vc Condition is Stable. Forms are Medication Reconciliation Form, Thank You Letter, Antibiotic Education, Prescription Opioid Use. Follow up: Leighton Vyas; When: 2 - 3 days; Reason: Recheck today's complaints, Re-evaluation by your physician. Follow up: Emergency Department; When: As needed; Reason: Worsening of condition. Problem is an ongoing problem. Symptoms have improved. la1
[2019-09-01 18:37] VITALS: BP 137/92; TEMP 98.5; O2SAT 98
--- NOTE | 2019-09-02 06:21 | EKG ---
Test Date: 2019-09-01 Test Time: 13:01:20 Freight Engineer: JUAN MEASUREMENT RESULTS: Intervals: Rate: 55 AL: 174 QRSD: 102 QT: 394 QTc: 376 [place]: P: 78 AL: 174 QRS: 41 T: 58 INTERPRETIVE STATEMENTS: Sinus bradycardia Otherwise normal ECG Compared to ECG 10/15/2006 05:42:46 T-wave abnormality no longer present Possible ischemia no longer present Electronically Signed On 09-02-19 06:20:47 [employer] by Leroy Spangler
== END 2019-09-01 16:44 | disposition home or self-care (01) ==
LOC: ER 11:54
DX: R20.2 Paresthesia of skin (principal)
CPT/HCPCS: 36415; 70450; 70551; 71045; 80048; 80076; 83735; 83880; 84484; 85025; 85610; 93005; 99285

== ENCOUNTER 2020-05-19 18:54 | Emergency (ER) | payer BC ==
[2020-05-19] MEDS ORDERED: HYDROCODONE/APAP 10/325 TAB ONE (20:17)
[2020-05-19] MEDS ORDERED: DIAZEPAM 5 MG TABLET ONE (20:17)
--- NOTE | 2020-05-19 20:44 | RAD REPORT ---
EXAM DESCRIPTION: RAD - Lumbar Spine 3 Views - 05/19/2020 8:31 pm CLINICAL HISTORY: LOWER BACK PAIN COMPARISON: No comparisons FINDINGS: A three-view lumbar spine examination was performed. Lumbar bodies are normal in height and alignment. No fracture or acute bony process seen. No disc spa ce narrowing. Facet joint degenerative changes are present. Prominent endplate spurs are seen in the L3 and L4 bodies. No pars defects identified. Mild SI joint degenerative changes are present. IMPRESSION: Lumbar spine degenerative changes are present without an acute finding identifiable.
[2020-05-19] MEDS ORDERED: dexAMETHasone 10 MG/ML VIAL ONE (21:22)
[2020-05-19] MEDS ORDERED: KETOROLAC 30 MG/ML INJ ONE (21:23)
--- NOTE | 2020-05-19 21:40 | EDPHYS ---
Physician Documentation [facility] Name: Luis Humphreys Age: 59 yrs Sex: Male : 1960 Arrival Date: 05/19/2020 Time: 18:56 Bed 4 Private MD: ED Physician Herve De Anda HPI: 05/19 20:04 This 59 yrs old Black Male presents to ER via Ambulatory with complaints of Back Pain. [facility] 20:04 The patient presents with pain that is acute. Onset: The symptoms/episode jmm began/occurred this morning. The pain does not radiate. Associated signs and symptoms: Pertinent negatives: abdominal pain, chest pain, fever, headache, hematuria, incontinence, nausea, numbness, tingling, urinary retention, vomiting, weakness. Modifying factors: The patient symptoms are alleviated by remaining still, the patient symptoms are aggravated by movement. Historical: - Allergies: 19:32 No Known Drug Allergies; ls4 - Home Meds: 19:32 carbamazepine 100 mg Oral chew 2 tabs every 12 hours [Active]; gabapentin 600 mg Oral ls4 tab 2 tab twice daily [Active]; - PMHx: 19:32 Asthma; nerve pain right side of face; ls4 19:33 BACK PAIN; ls4 - Immunization history:: Adult Immunizations up to date. - Social history:: Smoking status: Patient reports the use of cigarette tobacco products, smokes one pack cigarettes per day. Patient uses alcohol, only on a social basis. ROS: 20:04 Constitutional: Negative for fever, chills, and weight loss, Cardiovascular: Negative jm for chest pain, palpitations, and edema, Respiratory: Negative for shortness of breath, cough, wheezing, and pleuritic chest pain, Abdomen/GI: Negative for abdominal pain, nausea, vomiting, diarrhea, and constipation. 20:04 Back: Positive for pain with movement. 20:04 All other systems are negative. Exam: 20:04 Constitutional: This is a well developed, well nourished patient who is awake, alert, jmm and in no acute distress. Head/Face: atraumatic. Eyes: EOMI, no conjunctival erythema appreciated ENT: Moist Mucus Membranes Neck: Trachea midline, Supple Chest/axilla: Normal chest wall appearance and motion. Cardiovascular: Regular rate and rhythm. No edema appreciated Respiratory: Normal respirations, no respiratory distress appreciated Abdomen/GI: Non distended, soft 20:04 Skin: General appearance color normal MS/ Extremity: Moves all extremities, no obvious deformities appreciated, no edema noted to the lower extremities Neuro: Awake and alert, normal gait Psych: Behavior is normal, Mood is normal, Patient is cooperative and pleasant 20:04 Back: pain, that is mild, of the right low back, vertebral tenderness, is not appreciated. Vital Signs: 19:29 BP 151 / 80; Pulse 70; Resp 16; Pulse Ox 99% on R/A; Weight 106.59 kg; Height 6 ft. 1 ls4 in. (185.42 cm); Pain 10/10; 20:13 BP 143 / 75; Pulse 55; Resp 18; Pulse Ox 98% on R/A; lp1 19:29 Body Mass Index 31.00 (106.59 kg, 185.42 cm) ls4 MDM: 20:03 Patient medically screened. [facility] 21:36 Data reviewed: vital signs, nurses notes. Counseling: I had a detailed discussion with [facility] the patient and/or guardian regarding: the historical points, exam findings, and any diagnostic results supporting the discharge/admit diagnosis, radiology results, the need for outpatient follow up, to return to the emergency department if symptoms worsen or persist or if there are any questions or concerns that arise at home. ED course: Pain is slightly reduced in the ED. Patient is able to ambulate. Patient is afebrile. I do not suspect cord compression, cauda equina, spinal abscess, pyelonephritis. Patient is advised to follow up with pcp and otherwise given strict return precautions. Patient understood and agrees with the plan of care. . 05/19 20:04 Order name: Lumbar Spine (3 Views) XRAY; Complete Time: 20:47 [facility] Administered Medications: 20:06 Drug: [place] 10 mg-325 mg 1 tabs Route: PO; lp1 21:34 Follow up: Response: No change in condition lp1 20:06 Drug: Valium 5 mg Route: PO; lp1 21:34 Follow up: Response: No change in condition lp1 21:15 Drug: Ketorolac 30 mg Route: IM; Site: right deltoid; lp1 21:54 Follow up: Response: No adverse reaction lp1 21:15 Drug: Dexamethasone 10 mg Route: IM; Site: right deltoid; lp1 21:54 Follow up: Response: No adverse reaction lp1 Disposition: 05/20 05:57 Co-signature as Attending Physician, Herve De Anda MD. [email or web address] Disposition: 05/19/20 21:40 Discharged to Home. Impression: Low back pain. - Condition is Stable. - Discharge Instructions: Back Pain, Adult. - Prescriptions for orphenadrine citrate 100 mg Oral Tablet Sustained Release - take 1 tablet by ORAL route 2 times per day As needed; 20 tablet. - Medication Reconciliation Form, Thank You Letter, Antibiotic Education, Prescription Opioid Use form. - Follow up: Private Physician; When: 2 - 3 days; Reason: Recheck today's complaints, Continuance of care, Re-evaluation by your physician. Signatures: Dispatcher [employer] EDMS Mukund Mariee PA PA jmm Pena, Laura, RN RN lp1 Tatiana Renee RN RN ls4 Herve De Anda MD MD [email or web address] Corrections: (The following items were deleted from the chart) 05/19 22:03 21:40 05/19/2020 21:40 Discharged to Home. Impression: Low back pain. Condition is lp1 Stable. Forms are Medication Reconciliation Form, Thank You Letter, Antibiotic Education, Prescription Opioid Use. Follow up: Private Physician; When: 2 - 3 days; Reason: Recheck today's complaints, Continuance of care, Re-evaluation by your physician. ericka
--- NOTE | 2020-05-19 21:40 | ER ---
Nurse's Notes [facility] Name: Luis Humphreys Age: 59 yrs Sex: Male : 1960 Arrival Date: 05/19/2020 Time: 18:56 Bed 4 Private MD: Diagnosis: Low back pain Presentation: 05/19 19:29 Chief complaint: Patient states: WOKE UP THIS MORNING AND MY BACK IS HURTING. GOT WORSE ls4 DAY WHEN ON. TOOK 2 BACK AND BODY PILLS. Coronavirus screen: At this time, the client does not indicate any symptoms associated with coronavirus-19. Ebola Screen: No symptoms or risks identified at this time. Initial Sepsis Screen: Does the patient meet any 2 criteria? No. Patient's initial sepsis screen is negative. Does the patient have a suspected source of infection? No. Patient's initial sepsis screen is negative. Risk Assessment: Do you want to hurt yourself or someone else? Patient reports no desire to harm self or others. Onset of symptoms was May 19, 2020 at 08:00. Care prior to arrival: Medication(s) given: LILIYA BACK AND BODY X 2. Activity prior to arrival: None. 19:29 Method Of Arrival: Ambulatory ls4 19:29 Acuity: GERALD 4 ls4 Historical: - Allergies: 19:32 No Known Drug Allergies; ls4 - Home Meds: 19:32 carbamazepine 100 mg Oral chew 2 tabs every 12 hours [Active]; gabapentin 600 mg Oral ls4 tab 2 tab twice daily [Active]; - PMHx: 19:32 Asthma; nerve pain right side of face; ls4 19:33 BACK PAIN; ls4 - Immunization history:: Adult Immunizations up to date. - Social history:: Smoking status: Patient reports the use of cigarette tobacco products, smokes one pack cigarettes per day. Patient uses alcohol, only on a social basis. Screenin:33 Abuse screen: Denies threats or abuse. Denies injuries from another. Nutritional ls4 screening: No deficits noted. Tuberculosis screening: No symptoms or risk factors identified. Fall Risk None identified. Assessment: 20:12 General: Appears in no apparent distress. Behavior is calm, cooperative, appropriate lp1 for age. Pain: Complains of pain in lumbar area and right mid back Pain currently is 7 out of 10 on a pain scale. Quality of pain is described as aching. Neuro: Level of Consciousness is awake, alert, obeys commands, Oriented to person, place, time, situation. Cardiovascular: Patient's skin is warm and dry. Respiratory: Respiratory effort is even, unlabored. GI: No signs and/or symptoms were reported involving the gastrointestinal system. : No signs and/or symptoms were reported regarding the genitourinary system. EENT: No signs and/or symptoms were reported regarding the EENT system. Derm: Skin is intact, Skin is dry, Skin is normal. Musculoskeletal: Circulation, motion, and sensation intact. Reports pain in lumbar area and right mid back. 21:15 Reassessment: Patient appears in no apparent distress at this time. Patient states lp1 continued back pain on movement; no relief from medications administered. 21:54 Reassessment: Patient appears in no apparent distress at this time. Patient is alert, lp1 oriented x 3, equal unlabored respirations, skin warm/dry/pink. Patient demonstrates understanding of discharge instructions; waiting for ride home at this time. Vital Signs: 19:29 BP 151 / 80; Pulse 70; Resp 16; Pulse Ox 99% on R/A; Weight 106.59 kg; Height 6 ft. 1 ls4 in. (185.42 cm); Pain 10/10; 20:13 BP 143 / 75; Pulse 55; Resp 18; Pulse Ox 98% on R/A; lp1 19:29 Body Mass Index 31.00 (106.59 kg, 185.42 cm) ls4 ED Course: 18:56 Patient arrived in ED. ds1 19:32 Triage completed. ls4 19:34 Mukund Mariee PA is PHCP. [facility] 19:34 Herve De Anda MD is Attending Physician. [facility] 19:56 Maris Del Real, JEAN PAUL is Primary Nurse. lp1 20:13 Arm band placed on. lp1 20:13 Patient has correct armband on for positive identification. lp1 20:25 Lumbar Spine (3 Views) XRAY In Process Unspecified. EDMS 21:34 No provider procedures requiring assistance completed. Patient did not have IV access lp1 during this emergency room visit. Administered Medications: 20:06 Drug: [place] 10 mg-325 mg 1 tabs Route: PO; lp1 21:34 Follow up: Response: No change in condition lp1 20:06 Drug: Valium 5 mg Route: PO; lp1 21:34 Follow up: Response: No change in condition lp1 21:15 Drug: Ketorolac 30 mg Route: IM; Site: right deltoid; lp1 21:54 Follow up: Response: No adverse reaction lp1 21:15 Drug: Dexamethasone 10 mg Route: IM; Site: right deltoid; lp1 21:54 Follow up: Response: No adverse reaction lp1 Outcome: 21:40 Discharge ordered by . ericka 21:53 Discharged to home via wheelchair, with family. lp1 21:53 Condition: good 21:53 Discharge instructions given to patient, Instructed on discharge instructions, follow up and referral plans. medication usage, Demonstrated understanding of instructions, follow-up care, medications, Prescriptions given X 1. 22:03 Patient left the ED. lp1 Signatures: Dispatcher [employer] EDMS Mukund Mariee PA PA jmm Sanford, Demi ds1 Maris Del Real RN RN lp1 Tatiana Renee RN RN ls4
[2020-05-19 22:24] VITALS: BP 143/75; O2SAT 98
== END 2020-05-19 22:03 | disposition home or self-care (01) ==
LOC: ER 18:54
DX: M54.5 Low back pain (principal); F17.210 Nicotine dependence, cigarettes, uncomplicated
CPT/HCPCS: 72100; 96372; 99283; J1100

== ENCOUNTER 2020-05-28 14:38 | Emergency (ER) | payer BC ==
[2020-05-28] MEDS ORDERED: HYDROCODONE/APAP 7.5/325 MG TAB ONE (15:30)
--- NOTE | 2020-05-28 16:01 | RAD REPORT ---
EXAM DESCRIPTION: RAD - Hip Right 2 View - 05/28/2020 3:33 pm CLINICAL HISTORY: PAIN COMPARISON: No comparisons FINDINGS: AP and frog-leg views of the right hip were obtained. There is no fracture or dislocation. No AVN or focal head abnormality. No acute or destructive bony p rocess seen. No significant degenerative change seen. IMPRESSION: Negative right hip examination for acute or significant findings.
--- NOTE | 2020-05-28 16:08 | ER ---
Nurse's Notes [facility] Name: Luis Humphreys Age: 59 yrs Sex: Male : 1960 Arrival Date: 05/28/2020 Time: 14:41 Bed 8 Private MD: Diagnosis: Sciatica, right side Presentation: 05/28 14:57 Chief complaint: Patient states: low back pain with radiation to the right hip x 2 sv weeks. Seen here about a week ago for the same thing, sent home with prescriptions with no relief. Denies dysuria. Coronavirus screen: Client denies travel out of the [place] in the last 14 days. At this time, the client does not indicate any symptoms associated with coronavirus-19. Ebola Screen: No symptoms or risks identified at this time. Initial Sepsis Screen: Does the patient meet any 2 criteria? No. Patient's initial sepsis screen is negative. Does the patient have a suspected source of infection? No. Patient's initial sepsis screen is negative. Risk Assessment: Do you want to hurt yourself or someone else? Patient reports no desire to harm self or others. Onset of symptoms was April 2020. 14:57 Method Of Arrival: Wheelchair sv 14:57 Acuity: GERALD 4 sv Triage Assessment: 14:57 General: Appears in no apparent distress. uncomfortable, well developed, Behavior is sv calm, cooperative, appropriate for age. Pain: Complains of pain in right low back Pain radiates to right leg Pain currently is 10 out of 10 on a pain scale. Pain began 2 weeks ago Is continuous, Aggravated by increased activity. Neuro: Level of Consciousness is awake, alert, obeys commands, Oriented to person, place, time, situation, Moves all extremities. Full function Gait is steady, with his cane. Respiratory: Airway is patent Respiratory effort is even, unlabored, Respiratory pattern is regular, symmetrical. Derm: Skin is intact, Skin is pink, warm \T\ dry. Musculoskeletal: Range of motion: intact in all extremities. Historical: - Allergies: 14:59 No Known Allergies; sv - PMHx: 14:59 Asthma; Back pain; nerve pain right side of face; sv - PSHx: 14:59 None; sv - Immunization history:: Adult Immunizations up to date. - Social history:: Smoking status: . Screenin:59 Abuse screen: Denies threats or abuse. Denies injuries from another. Nutritional sv screening: No deficits noted. Tuberculosis screening: No symptoms or risk factors identified. Fall Risk None identified. Assessment: 15:22 Reassessment: Patient appears in no apparent distress at this time. No changes from sv previously documented assessment. Patient and/or family updated on plan of care and expected duration. Pain level reassessed. Patient is alert, oriented x 3, equal unlabored respirations, skin warm/dry/pink. 16:45 Reassessment: Patient appears in no apparent distress at this time. No changes from sv previously documented assessment. Patient and/or family updated on plan of care and expected duration. Pain level reassessed. Patient is alert, oriented x 3, equal unlabored respirations, skin warm/dry/pink. Vital Signs: 14:56 BP 164 / 74; Pulse 50; Resp 16; Temp 98.5(O); Pulse Ox 100% on R/A; Weight 104.33 kg; dh3 Height 6 ft. 1 in. (185.42 cm); Pain 10/10; 15:30 BP 160 / 77; Pulse 48; Resp 18; Pulse Ox 100% ; sv 16:00 BP 176 / 77; Pulse 45; Resp 16; Pulse Ox 100% ; sv 16:44 BP 168 / 74; Pulse 46; Resp 16; Pulse Ox 100% ; sv 14:56 Body Mass Index 30.34 (104.33 kg, 185.42 cm) 3 ED Course: 14:41 Patient arrived in ED. mr 14:52 Breana Mcrae, JEAN PAUL is Primary Nurse. sv 14:52 Arm band placed on Patient placed in an exam room, on a stretcher. sv 14:58 Triage completed. sv 14:59 Patient has correct armband on for positive identification. Bed in low position. Call sv light in reach. Pulse ox on. NIBP on. Door closed. Head of bed elevated. 15:00 Nahomi Delgadillo FNP-C is PHCP. kb 15:00 Doni Key MD is Attending Physician. kb 15:12 Nurse Practitioner and/or Physician Industrial Sociologist to see patient. sv 15:22 Awaiting for x-ray. sv 15:29 X-ray(s) taken. sv 15:30 Hip Right 2 View XRAY In Process Unspecified. EDMS 16:45 No provider procedures requiring assistance completed. Patient did not have IV access sv during this emergency room visit. Administered Medications: 15:21 Drug: [place] (7.5 mg-325 mg) 1 tabs {Note: rass2.} Route: PO; sv 16:44 Follow up: Response: No adverse reaction; RASS: Alert and Calm (0) sv Outcome: 16:08 Discharge ordered by MD. sullivan 16:45 Discharged to home ambulatory, with his cane sv 16:45 Condition: stable 16:45 Discharge instructions given to patient, Instructed on discharge instructions, follow up and referral plans. medication usage, Demonstrated understanding of instructions, follow-up care, medications, Prescriptions given X 2. 16:46 Patient left the ED. sv Signatures: Dispatcher [employer] EDIL Nahomi Delgadillo, ROHIT FINLEY-Breana Morgan RN RN Romy Knapp mr Escudero, Norma 3 Corrections: (The following items were deleted from the chart) 15:12 15:12 Respiratory care therapist to see patient. sv sv
--- NOTE | 2020-05-28 16:08 | EDPHYS ---
Physician Documentation [facility] Name: Luis Humphreys Age: 59 yrs Sex: Male : 1960 Arrival Date: 05/28/2020 Time: 14:41 Bed 8 Private MD: ED Physician Doni Key HPI: 05/28 15:19 This 59 yrs old Black Male presents to ER via Wheelchair with complaints of Back Pain. kb 15:19 The patient presents with pain that is acute, with no known mechanism of injury. The kb symptoms are located in the right low back. Onset: The symptoms/episode began/occurred 2 week(s) ago. The pain radiates to the lateral aspect of right thigh. Associated signs and symptoms: Pertinent positives: none Pertinent negatives: abdominal pain, constipation, dysuria, fever, hematuria, incontinence, nausea, numbness, tingling, urinary retention, weakness. The problem was sustained without known cause. Modifying factors: The patient symptoms are alleviated by nothing, the patient symptoms are aggravated by any movement. Severity of symptoms: At their worst the symptoms were moderate, in the emergency department the symptoms are unchanged. The patient has not experienced similar symptoms in the past. The patient has been recently seen at the [facility], last week, for similar complaints X-rays were performed, was given a prescription for pain medications. Pt reports right low back pain for 2 weeks. States he woke up with the pain one morning, denies injury or trauma. Pain worse after resting and getting back up, "feels stiff." . Historical: - Allergies: 14:59 No Known Allergies; sv - PMHx: 14:59 Asthma; Back pain; nerve pain right side of face; sv - PSHx: 14:59 None; sv - Immunization history:: Adult Immunizations up to date. - Social history:: Smoking status: . ROS: 15:14 Constitutional: Negative for fever, chills, and weight loss, Cardiovascular: Negative kb for chest pain, palpitations, and edema, Respiratory: Negative for shortness of breath, cough, wheezing, and pleuritic chest pain, Abdomen/GI: Negative for abdominal pain, nausea, vomiting, diarrhea, and constipation, : Negative for injury, bleeding, discharge, and swelling, MS/Extremity: Negative for injury and deformity, Skin: Negative for injury, rash, and discoloration, Neuro: Negative for headache, weakness, numbness, tingling, and seizure. 15:14 Back: 15:14 Back: Positive for pain at rest, pain with movement, radiated pain, Negative for injury or acute deformity, decreased range of motion. Exam: 15:15 Constitutional: This is a well developed, well nourished patient who is awake, alert, kb and in no acute distress. Head/Face: Normocephalic, atraumatic. Chest/axilla: Normal chest wall appearance and motion. Nontender with no deformity. No lesions are appreciated. Cardiovascular: Regular rate and rhythm with a normal S1 and S2. No gallops, murmurs, or rubs. Normal PMI, no JVD. No pulse deficits. Respiratory: Lungs have equal breath sounds bilaterally, clear to auscultation and percussion. No rales, rhonchi or wheezes noted. No increased work of breathing, no retractions or nasal flaring. Abdomen/GI: Soft, non-tender, with normal bowel sounds. No distension or tympany. No guarding or rebound. No evidence of tenderness throughout. Skin: Warm, dry with normal turgor. Normal color with no rashes, no lesions, and no evidence of cellulitis. MS/ Extremity: Pulses equal, no cyanosis. Neurovascular intact. Full, normal range of motion. Neuro: Awake and alert, GCS 15, oriented to person, place, time, and situation. Cranial nerves II-XII grossly intact. Motor strength 5/5 in all extremities. Sensory grossly intact. Cerebellar exam normal. Normal gait. 15:15 Back: pain, that is moderate, of the right low back, ROM is painful, with rotation to the right, normal spinal alignment noted, CVA tenderness, is absent, vertebral tenderness, is not appreciated. Vital Signs: 14:56 BP 164 / 74; Pulse 50; Resp 16; Temp 98.5(O); Pulse Ox 100% on R/A; Weight 104.33 kg; dh3 Height 6 ft. 1 in. (185.42 cm); Pain 10/10; 15:30 BP 160 / 77; Pulse 48; Resp 18; Pulse Ox 100% ; sv 16:00 BP 176 / 77; Pulse 45; Resp 16; Pulse Ox 100% ; sv 16:44 BP 168 / 74; Pulse 46; Resp 16; Pulse Ox 100% ; sv 14:56 Body Mass Index 30.34 (104.33 kg, 185.42 cm) dh3 MDM: 15:00 Patient medically screened. kb 15:17 Data reviewed: vital signs, nurses notes. Data interpreted: Pulse oximetry: on room air kb is 100 %. Interpretation: normal. ED course: Pt denies urinary symptoms, fever, abd pain. Pain and tenderness is to right upper buttock with radiation to right hip and mid thigh. Lumbar spine x-ray completed during last visit and was negative for acute findings. Will x-ray hip at this time and give medication for pain control. . 16:04 Counseling: I had a detailed discussion with the patient and/or guardian regarding: the kb historical points, exam findings, and any diagnostic results supporting the discharge/admit diagnosis, radiology results, the need for outpatient follow up, a family practitioner, to return to the emergency department if symptoms worsen or persist or if there are any questions or concerns that arise at home. 05/28 15:11 Order name: Hip Right 2 View XRAY; Complete Time: 16:04 kb Administered Medications: 15:21 Drug: [place] (7.5 mg-325 mg) 1 tabs {Note: rass2.} Route: PO; sv 16:44 Follow up: Response: No adverse reaction; RASS: Alert and Calm (0) sv Disposition: 05/28/20 16:08 Discharged to Home. Impression: Sciatica, right side. - Condition is Stable. - Discharge Instructions: Sciatica, [id number]. - Prescriptions for Ibuprofen 800 mg Oral Tablet - take 1 tablet by ORAL route every 8 hours As needed take with food; 30 tablet. Prednisone 20 mg Oral Tablet - take 1 tablet by ORAL route once daily for 5 days; 5 tablet. - Medication Reconciliation Form, Thank You Letter, Antibiotic Education, Prescription Opioid Use form. - Follow up: Emergency Department; When: As needed; Reason: Worsening of condition. Follow up: Private Physician; When: 2 - 3 days; Reason: Recheck today's complaints, Continuance of care, Re-evaluation by your physician. Signatures: Dispatcher [employer] Nahomi Seymour, ROHIT FINLEY-Breana Morgan RN RN sv Corrections: (The following items were deleted from the chart) 15:16 15:14 Back: kb kb 15:20 15:19 Pt reports right low back pain for 2 weeks. States he woke up with the pain one kb morning, denies injury or trauma. . kb 16:46 16:08 05/28/2020 16:08 Discharged to Home. Impression: Sciatica, right side. Condition sv is Stable. Forms are Medication Reconciliation Form, Thank You Letter, Antibiotic Education, Prescription Opioid Use. Follow up: Emergency Department; When: As needed; Reason: Worsening of condition. Follow up: Private Physician; When: 2 - 3 days; Reason: Recheck today's complaints, Continuance of care, Re-evaluation by your physician. kb
== END 2020-05-28 16:46 | disposition home or self-care (01) ==
LOC: ER 14:38
DX: M54.31 Sciatica, right side (principal)
CPT/HCPCS: 99284

== ENCOUNTER 2021-03-30 06:41 | Emergency (ER) | payer BC ==
[2021-03-30 07:34] LABS: Absolute Lymphocytes (CBC) 0.9 K/uL (0.7-4.9); Basophils % 0.4 % (0-1.3); Lymphocytes % 11.8 % (15.3-44.8); MPV 6.8 fL (7.6-11.3); Protime INR 1.15; RBC Red Blood Cell Count 3.96 M/uL (4.33-5.43)
[2021-03-30 07:50] LABS: ALT/SGPT 33 U/L (12-78); AST/SGOT 21 U/L (15-37); Albumin 3.3 g/dL (3.4-5.0); Alkaline Phosphatase 106 U/L (45-117); BUN Blood Urea Nitrogen 12 mg/dL (7-18); Bicarbonate 33 mmol/L (21-32); Bilirubin Direct < 0.1 mg/dL (0-0.2); Bilirubin Total 0.2 mg/dL (0.2-1.0); Glucose Level 99 mg/dL (74-106); NT PRO-BNP 45 pg/mL (<125); Potassium 4.1 mmol/L (3.5-5.1); Protein, Total 7.3 g/dL (6.4-8.2); Sodium Level 142 mmol/L (136-145); Troponin (Emerg Dept Use Only) < 0.02 ng/mL (0.0-0.045)
[2021-03-30] MEDS ORDERED: NA CHLORIDE 0.9% 1,000 ML ONE (08:23)
[2021-03-30] MEDS ORDERED: CEFTRIAXONE/SWI 1gm 1 GM/10 ML SYR ONE (08:23)
[2021-03-30] MEDS ORDERED: AZITHROMYCIN IV 500 MG in NA CHLORIDE 0.9% 250 ML IVPB ONE (08:30)
[2021-03-30] MEDS ORDERED: IPRATROPIUM BROM 0.5MG/2.5ML ONE (09:08)
[2021-03-30] MEDS ORDERED: LEVALBUTEROL 1.25 MG/3 ML NEB ONE (09:08)
[2021-03-30] MEDS ORDERED: METHYLPREDNISOLONE 125 MG INJ ONE (09:08)
--- NOTE | 2021-03-30 09:22 | RAD REPORT ---
EXAM DESCRIPTION: RAD - Chest Single View - 03/30/2021 8:14 am CLINICAL HISTORY: CONGESTION Chest pain. COMPARISON: Chest Single View dated 09/01/2019; Chest Pa And Lat (2 Views) dated 11/23/2016; Chest Sin gle View dated 11/23/2016; CHEST PA AND LAT 2 VIEW dated 02/13/2015 FINDINGS: Portable technique limits examination quality. The lungs are grossly clear. The heart is normal in size. No displaced fractures. IMPRESSION: No acute intrathoracic process suspected.
--- NOTE | 2021-03-30 09:27 | ER ---
Nurse's Notes [facility] Name: Luis Humphreys Age: 60 yrs Sex: Male : 1960 Arrival Date: 03/30/2021 Time: 06:44 Bed 18 Private MD: Augusto Jiménez Diagnosis: Influenza due to other identified influenza virus with other respiratory manifestations-Influenza B Presentation: 03/30 06:59 Chief complaint: Patient states: cough, chest congestion, productive cough for a week, em also reports fever of 101. Coronavirus screen: Client denies travel out of the [place] in the last 14 days. Ebola Screen: Patient negative for fever greater than or equal to 101.5 degrees Fahrenheit, and additional compatible Ebola Virus Disease symptoms Patient denies exposure to infectious person. Patient denies travel to an Ebola-affected area in the 21 days before illness onset. No symptoms or risks identified at this time. Initial Sepsis Screen: Does the patient meet any 2 criteria? No. Patient's initial sepsis screen is negative. Does the patient have a suspected source of infection? Yes: Productive cough/pneumonia. Risk Assessment: Do you want to hurt yourself or someone else? Patient reports no desire to harm self or others. Onset of symptoms was March 30, 2021. 06:59 Method Of Arrival: Ambulatory em 06:59 Acuity: GERALD 3 em Historical: - Allergies: 07:01 No Known Allergies; em - PMHx: 07:01 Asthma; Back pain; nerve pain right side of face; Hypertensive disorder; em - PSHx: 07:01 None; em - Immunization history:: Adult Immunizations up to date, Client reports receiving the 2nd dose of the Covid vaccine. - Social history:: Smoking status: Patient denies any tobacco usage or history of. Screenin:05 Abuse screen: Denies threats or abuse. Nutritional screening: No deficits noted. rb3 Tuberculosis screening: No symptoms or risk factors identified. Fall Risk None identified. Assessment: 07:05 General: Appears in no apparent distress. comfortable, Behavior is calm, cooperative, rb3 Reports fever for. Pain: Complains of pain in chest Aggravated by coughing. Neuro: Level of Consciousness is awake, alert, obeys commands, Oriented to person, place, time, situation. Cardiovascular: Patient's skin is warm and dry. Cardiovascular: Reports chest congestion. Respiratory: Reports cough that is productive, green/yellow sputum pain with cough Airway is patent Respiratory effort is even, unlabored, Respiratory pattern is regular, symmetrical. GI: No signs and/or symptoms were reported involving the gastrointestinal system. : No signs and/or symptoms were reported regarding the genitourinary system. 08:00 Reassessment: Patient appears in no apparent distress at this time. No changes from rb3 previously documented assessment. Pt is watching TV. 09:00 Reassessment: Patient appears in no apparent distress at this time. Patient and/or rb3 family updated on plan of care and expected duration. Pain level reassessed. Patient is alert, oriented x 3, equal unlabored respirations, skin warm/dry/pink. 10:00 Reassessment: Patient appears in no apparent distress at this time. No changes from rb3 previously documented assessment. Vital Signs: 06:59 BP 135 / 65; Pulse 68; Resp 18; Temp 97.8; Pulse Ox 98% on R/A; Weight 112.94 kg; em Height 6 ft. 1 in. (185.42 cm); Pain 5/10; 08:00 BP 132 / 62; Pulse 65; Resp 15; Pulse Ox 100% ; rb3 09:00 BP 123 / 49; Pulse 58; Resp 13; Pulse Ox 100% ; rb3 10:00 BP 126 / 51; Pulse 71; Resp 13; Pulse Ox 100% ; rb3 06:59 Body Mass Index 32.85 (112.94 kg, 185.42 cm) em ED Course: 06:44 Patient arrived in ED. es 06:45 Augusto Jiménez MD is Private Physician. es 07:01 Triage completed. em 07:01 Arm band placed on. em 07:05 Patient has correct armband on for positive identification. Bed in low position. Call rb3 light in reach. Side rails up X 1. monitoring tech on. Pulse ox on. NIBP on. 07:07 Janay Avitia, JEAN PAUL is Primary Nurse. rb3 07:17 Gurpreet Valdez MD is Attending Physician. emil 07:21 Inserted saline lock: 20 gauge in right antecubital area, using aseptic technique. rb3 Blood collected. 08:14 XRAY Chest (1 view) In Process Unspecified. EDMS 08:25 Flu Sent. rb3 08:25 Lactate Sent. rb3 09:24 Augusto Jiménez MD is Referral Physician. emil 10:14 No provider procedures requiring assistance completed. IV discontinued, intact, rb3 bleeding controlled, No redness/swelling at site. Pressure dressing applied. Administered Medications: 08:24 Drug: NS 0.9% 1000 ml Route: IV; Rate: 1 bolus; Site: right antecubital; rb3 09:44 Follow up: IV Status: Completed infusion rb3 08:40 Drug: Rocephin (cefTRIAXone) 1 grams Route: IV; Rate: per protocol; Site: right rb3 antecubital; 08:55 Follow up: Response: No adverse reaction; IV Status: Completed infusion rb3 08:53 Drug: Zithromax (azithromycin) 500 mg Route: IVPB; Infused Over: 1 hrs; Site: right rb3 antecubital; 10:00 Follow up: Response: No adverse reaction; IV Status: Completed infusion rb3 08:53 Drug: SOLU-Medrol (methylPrednisoLONE) 125 mg Route: IVP; Site: right antecubital; rb3 09:10 Follow up: Response: No adverse reaction rb3 08:56 Drug: Xopenex (levalbuterol) 2.5 mg Route: Inhalation; rb3 08:56 Drug: AtroVENT (ipratropium) Aerosol 0.5 mg Route: Inhalation; rb3 09:16 Drug: Tamiflu (oseltamivir) 75 mg Route: PO; rb3 09:45 Follow up: Response: No adverse reaction rb3 Outcome: 09:26 Discharge ordered by . emil 10:14 Patient left the ED. rb3 10:14 Discharged to home ambulatory. rb3 10:14 Condition: stable 10:14 Discharge instructions given to patient, Instructed on discharge instructions, follow up and referral plans. medication usage, Demonstrated understanding of instructions, follow-up care, medications, Prescriptions given X 4. Signatures: Dispatcher [employer] Gurpreet Marcum MD MD cha Salyer, Edna es Munoz, Edgar, RN RN Janay Davis RN RN rb3 Corrections: (The following items were deleted from the chart) 08:37 08:25 CORONAVIRUS+MR.LAB.BRZ drawn and sent. rb3 EDMS
--- NOTE | 2021-03-30 09:27 | EDPHYS ---
Physician Documentation [facility] Name: Luis Humphreys Age: 60 yrs Sex: Male : 1960 Arrival Date: 03/30/2021 Time: 06:44 Bed 18 Private MD: Augusto Jiménez ED Physician Gurpreet Valdez HPI: 03/30 09:17 This 60 yrs old Black Male presents to ER via Ambulatory with complaints of Chest emil Congestion, Fever. 09:17 The patient reports fever, that was measured at 100 degrees Fahrenheit. Onset: The emil symptoms/episode began/occurred 2 day(s) ago. Modifying factors: there are no obvious modifying factors. Associated signs and symptoms: Pertinent positives: chills, cough, myalgias, runny nose. Severity of symptoms: At their worst the symptoms were mild moderate in the emergency department the symptoms are unchanged. The patient has not experienced similar symptoms in the past. Historical: - Allergies: 07:01 No Known Allergies; em - PMHx: 07:01 Asthma; Back pain; nerve pain right side of face; Hypertensive disorder; em - PSHx: 07:01 None; em - Immunization history:: Adult Immunizations up to date, Client reports receiving the 2nd dose of the Covid vaccine. - Social history:: Smoking status: Patient denies any tobacco usage or history of. ROS: 09:22 Eyes: Negative for injury, pain, redness, and discharge, ENT: Negative for injury, emil pain, and discharge, Neck: Negative for injury, pain, and swelling, Cardiovascular: Negative for chest pain, palpitations, and edema, Abdomen/GI: Negative for abdominal pain, nausea, vomiting, diarrhea, and constipation, Back: Negative for injury and pain, : Negative for injury, bleeding, discharge, and swelling, MS/Extremity: Negative for injury and deformity, Skin: Negative for injury, rash, and discoloration, Neuro: Negative for headache, weakness, numbness, tingling, and seizure, Psych: Negative for depression, anxiety, suicide ideation, homicidal ideation, and hallucinations, Allergy/Immunology: Negative for hives, rash, and allergies, Endocrine: Negative for neck swelling, polydipsia, polyuria, polyphagia, and marked weight changes, Hematologic/Lymphatic: Negative for swollen nodes, abnormal bleeding, and unusual bruising. 09:22 Constitutional: Positive for body aches, fever, malaise. 09:22 Respiratory: Positive for cough, "sounds productive", shortness of breath, at rest. wheezing, expiratory. Exam: : Head/Face: Normocephalic, atraumatic. Eyes: Pupils equal round and reactive to light, emil extra-ocular motions intact. Lids and lashes normal. Conjunctiva and sclera are non-icteric and not injected. Cornea within normal limits. Periorbital areas with no swelling, redness, or edema. ENT: Nares patent. No nasal discharge, no septal abnormalities noted. Tympanic membranes are normal and external auditory canals are clear. Oropharynx with no redness, swelling, or masses, exudates, or evidence of obstruction, uvula midline. Mucous membranes moist. Neck: Trachea midline, no thyromegaly or masses palpated, and no cervical lymphadenopathy. Supple, full range of motion without nuchal rigidity, or vertebral point tenderness. No Meningismus. Chest/axilla: Normal chest wall appearance and motion. Nontender with no deformity. No lesions are appreciated. Cardiovascular: Regular rate and rhythm with a normal S1 and S2. No gallops, murmurs, or rubs. Normal PMI, no JVD. No pulse deficits. Abdomen/GI: Soft, non-tender, with normal bowel sounds. No distension or tympany. No guarding or rebound. No evidence of tenderness throughout. Back: No spinal tenderness. No costovertebral tenderness. Full range of motion. Male : Normal genitalia with no discharge or lesions. Skin: Warm, dry with normal turgor. Normal color with no rashes, no lesions, and no evidence of cellulitis. MS/ Extremity: Pulses equal, no cyanosis. Neurovascular intact. Full, normal range of motion. Neuro: Awake and alert, GCS 15, oriented to person, place, time, and situation. Cranial nerves II-XII grossly intact. Motor strength 5/5 in all extremities. Sensory grossly intact. Cerebellar exam normal. Normal gait. Psych: Awake, alert, with orientation to person, place and time. Behavior, mood, and affect are within normal limits. 09:22 Constitutional: The patient appears febrile. 09:22 Respiratory: mild respiratory distress is noted, Respirations: labored breathing, is not present, Breath sounds: bronchial sounds, that are mild, are scattered, decreased breath sounds, that are mild, are scattered, rhonchi, that are mild, are scattered, stridor, is not appreciated, + upper airway congestion. Respiratory rate: 65 09:32 ECG was reviewed by the Attending Physician. [facility] Vital Signs: 06:59 BP 135 / 65; Pulse 68; Resp 18; Temp 97.8; Pulse Ox 98% on R/A; Weight 112.94 kg; em Height 6 ft. 1 in. (185.42 cm); Pain 5/10; 08:00 BP 132 / 62; Pulse 65; Resp 15; Pulse Ox 100% ; rb3 09:00 BP 123 / 49; Pulse 58; Resp 13; Pulse Ox 100% ; rb3 10:00 BP 126 / 51; Pulse 71; Resp 13; Pulse Ox 100% ; rb3 06:59 Body Mass Index 32.85 (112.94 kg, 185.42 cm) em MDM: 07:17 Patient medically screened. emil 09:30 Differential diagnosis: viral Infection, bacterial infection, URI, bronchitis, emil pneumonia. Differential Diagnosis: Bronchitis Influenza Upper Respiratory Infection Sinusitis Pharyngitis Asthma Exacerbation Viral Syndrome Pneumonia. Data reviewed: vital signs, nurses notes, lab test result(s), EKG, radiologic studies, plain films. Data interpreted: color television console monitor: rate is 65 beats/min, rhythm is regular, Pulse oximetry: on room air is 100 %. Test interpretation: by ED physician or midlevel provider: ECG, plain radiologic studies. 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 03/30 06:58 Order name: Basic Metabolic Panel [facility] 03/30 06:58 Order name: CBC with Diff [facility] 03/30 06:58 Order name: LFT's [facility] 03/30 06:58 Order name: Magnesium; Complete Time: 07:51 [facility] 03/30 06:58 Order name: NT PRO-BNP; Complete Time: 07:51 [facility] 03/30 06:58 Order name: PT-INR; Complete Time: 07:51 [facility] 03/30 06:58 Order name: Troponin (emerg Dept Use Only); Complete Time: 07:51 ma2 03/30 06:58 Order name: Basic Metabolic Panel; Complete Time: 07:51 EDMS 03/30 06:58 Order name: CBC with Automated Diff; Complete Time: 07:51 EDMS 03/30 06:58 Order name: Liver (Hepatic) Function; Complete Time: 07:51 EDMS 03/30 07:51 Order name: Flu; Complete Time: 09:09 [facility] 03/30 07:51 Order name: Lactate; Complete Time: 09:09 [facility] 03/30 07:51 Order name: Procalcitonin; Complete Time: 09:16 emil 03/30 06:58 Order name: XRAY Chest (1 view); Complete Time: 09:33 ma2 03/30 06:58 Order name: EKG; Complete Time: 06:58 ma2 03/30 06:58 Order name: Cardiac monitoring; Complete Time: 07:46 ma2 03/30 06:58 Order name: EKG - Nurse/Tech; Complete Time: 07:46 ma2 03/30 06:58 Order name: IV Saline Lock; Complete Time: 07:25 ma2 03/30 06:58 Order name: Labs collected and sent; Complete Time: 07:25 ma2 03/30 06:58 Order name: O2 Per Protocol; Complete Time: 07:25 ma2 03/30 07:51 Order name: Blood Culture Adult (2) [facility] 03/30 09:34 Order name: SARS-COV-2 RT PCR [facility] 03/30 06:58 Order name: O2 Sat Monitoring; Complete Time: 07:25 ma2 EC:32 Rate is 66 beats/min. Rhythm is regular. QRS [place] is Normal. NV interval is normal. QRS emil interval is normal. QT interval is normal. No Q waves. T waves are Normal. No ST changes noted. Clinical impression: NSR w/ Non-specific ST/T Changes and No evidence of ischemia. Interpreted by me. Reviewed by me. Administered Medications: 08:24 Drug: NS 0.9% 1000 ml Route: IV; Rate: 1 bolus; Site: right antecubital; rb3 09:44 Follow up: IV Status: Completed infusion rb3 08:40 Drug: Rocephin (cefTRIAXone) 1 grams Route: IV; Rate: per protocol; Site: right rb3 antecubital; 08:55 Follow up: Response: No adverse reaction; IV Status: Completed infusion rb3 08:53 Drug: Zithromax (azithromycin) 500 mg Route: IVPB; Infused Over: 1 hrs; Site: right rb3 antecubital; 10:00 Follow up: Response: No adverse reaction; IV Status: Completed infusion rb3 08:53 Drug: SOLU-Medrol (methylPrednisoLONE) 125 mg Route: IVP; Site: right antecubital; rb3 09:10 Follow up: Response: No adverse reaction rb3 08:56 Drug: Xopenex (levalbuterol) 2.5 mg Route: Inhalation; rb3 08:56 Drug: AtroVENT (ipratropium) Aerosol 0.5 mg Route: Inhalation; rb3 09:16 Drug: Tamiflu (oseltamivir) 75 mg Route: PO; rb3 09:45 Follow up: Response: No adverse reaction rb3 Disposition Summary: 03/30/21 09:26 Discharge Ordered Location: Home [facility] Problem: new [facility] Symptoms: have improved emil Condition: Stable emil Diagnosis - Influenza due to other identified influenza virus with other respiratory [facility] manifestations - Influenza B Followup: [facility] - With: Augusto Jiménez MD - When: 2 - 3 days - Reason: Recheck today's complaints, Continuance of care, Re-evaluation by your physician Discharge Instructions: - Discharge Summary Sheet emil - Influenza, Adult emil - Upper Respiratory Infection, Adult [facility] Forms: - Medication Reconciliation Form [facility] - Thank You Letter [facility] - Antibiotic Education [facility] - Prescription Opioid Use [facility] Prescriptions: - albuterol sulfate 90 mcg/actuation Inhalation HFA aerosol inhaler - inhale 2 puff by INHALATION route every 4-6 hours; 1 Pump; Refills: 0, Product emil Selection Permitted - Medrol (Toy) 4 mg Oral Tablets, Dose Pack - take 1 tablet by ORAL route as directed - follow package instructions; 1 [facility] packet; Refills: 0, Product Selection Permitted - Tamiflu 75 mg Oral Capsule - take 1 tablet by ORAL route every 12 hours for 5 days; 10 tablet; Refills: 0, [facility] Product Selection Permitted - Zithromax 500 mg Oral Tablet - take 1 tablet by ORAL route once daily for 4 days; 4 tablet; Refills: 0, [facility] Product Selection Permitted Signatures: Dispatcher [employer] Gurpreet Marcum MD MD cha Munoz, Edgar, RN RN Doni Lazar MD MD ma2 Janay Avitia RN RN rb3 Corrections: (The following items were deleted from the chart) 08:37 07:52 CORONAVIRUS+ ordered. EDMS EDMS
[2021-03-30] MEDS ORDERED: OSELTAMIVIR 75 MG CAP ONE (09:35)
[2021-03-30 10:22] VITALS: TEMP 97.8
[2021-03-30 10:23] VITALS: O2SAT 100
[2021-03-30 10:27] VITALS: BP 126/51
--- NOTE | 2021-03-31 06:21 | EKG ---
Test Date: 2021-03-30 Test Time: 07:38:49 Security Coordinator: SULEIMAN MEASUREMENT RESULTS: Intervals: Rate: 66 [place]: 166 QRSD: 88 QT: 380 QTc: 398 [place]: P: 62 [place]: 166 QRS: 29 T: 46 INTERPRETIVE STATEMENTS: Normal sinus rhythm Possible Left atrial enlargement Borderline ECG Compared to ECG 09/01/2019 13:01:20 Sinus bradycardia no longer present Electronically Signed On 03-31-21 06:17:57 CDT by Seferino Jensen
== END 2021-03-30 10:14 | disposition home or self-care (01) ==
LOC: ER 06:41
DX: J10.1 Influenza due to other identified influenza virus with other respiratory manifestations (principal); Z20.822 Contact with and (suspected) exposure to COVID-19
CPT/HCPCS: 96365; 93005; 87040 ×2; 85025; 80048; 36415; 83735; 85610; 80076; 83605; 84484; 84145; 83880; 87804 ×2; 71045; 96375; 99285; U0003; J0456; J0696; J7050; J7030; J2930

== ENCOUNTER 2022-01-12 20:01 | Emergency (ER) | payer BC ==
--- NOTE | 2022-01-12 20:49 | EDPHYS ---
Physician Documentation [facility] Name: Luis Humphreys Age: 61 yrs Sex: Male : 1960 Arrival Date: 01/12/2022 Time: 20:03 Bed 11 Private MD: ED Physician Jake Vazquez HPI: 01/12 20:21 This 61 yrs old Black Male presents to ER via Unassigned with complaints of Productive rn Cough. 20:21 The patient or guardian reports cough, described as moderate, with productive sputum. rn Onset: The symptoms/episode began/occurred 1 week(s) ago. Severity of symptoms: At their worst the symptoms were mild, in the emergency department the symptoms are unchanged. Modifying factors: The symptoms are alleviated by nothing, the symptoms are aggravated by smoke. Associated signs and symptoms: Pertinent negatives: fever, rhinorrhea, sore throat, vomiting. The patient has not experienced similar symptoms in the past. The patient has not recently seen a physician. Pt reports productive cough for 1 week, not improving, no fever, + 20 year smoker, no hemoptysis, no chest pain. Reports mild sob with ambulation and during cough. No dyspnea at rest.. Historical: - Home Meds: 20:31 carbamazepine 100 mg Oral chew 2 tabs every 12 hours [Active]; gabapentin 600 mg Oral ll3 tab 2 tab twice daily [Active]; - PMHx: 20:31 Asthma; Back pain; Hypertensive disorder; nerve pain right side of face; ll3 Hypercholesterolemia; Hypertensive disorder; - Immunization history:: Client reports receiving the 2nd dose of the Covid vaccine. - Social history:: Smoking status: Patient reports the use of cigarette tobacco products, smokes one-half pack cigarettes per day. - Family history:: not pertinent. - Hospitalizations: : No recent hospitalization is reported. ROS: 20:21 Constitutional: Negative for fever, chills, and weight loss, Eyes: Negative for injury, rn pain, redness, and discharge, ENT: Negative for injury, pain, and discharge, Neck: Negative for injury, pain, and swelling, Cardiovascular: Negative for chest pain, palpitations, and edema, Respiratory: Negative for wheezing, and pleuritic chest pain, Abdomen/GI: Negative for abdominal pain, nausea, vomiting, diarrhea, and constipation, Back: Negative for injury and pain, : Negative for injury, bleeding, discharge, and swelling, MS/Extremity: Negative for injury and deformity, Skin: Negative for injury, rash, and discoloration, Neuro: Negative for headache, weakness, numbness, tingling, and seizure. Exam: 20:21 Constitutional: This is a well developed, well nourished patient who is awake, alert, rn and in no acute distress. Head/Face: Normocephalic, atraumatic. Eyes: Periorbital areas with no swelling, redness, or edema. Cardiovascular: Regular rate and rhythm. No pulse deficits. Respiratory: No increased work of breathing, no retractions or nasal flaring. Abdomen/GI: Soft, non-tender Skin: Warm, dry MS/ Extremity: Pulses equal, no cyanosis. Neurovascular intact. Full, normal range of motion. Equal circumference. Neuro: Awake and alert, GCS 15 Vital Signs: 20:28 BP 171 / 68; Pulse 85; Resp 20; Temp 99.5(TE); Pulse Ox 95% on R/A; Weight 104.33 kg ll3 (R); Height 6 ft. 1 in. (185.42 cm) (R); 20:28 Body Mass Index 30.34 (104.33 kg, 185.42 cm) ll3 MDM: 20:07 Patient medically screened. rn 20:47 Differential Diagnosis: Bronchitis Viral Syndrome Pneumonia. Data reviewed: vital rn signs, nurses notes, radiologic studies, plain films, and as a result, I will discharge patient. Counseling: I had a detailed discussion with the patient and/or guardian regarding: the historical points, exam findings, and any diagnostic results supporting the discharge/admit diagnosis, radiology results, the need for outpatient follow up, to return to the emergency department if symptoms worsen or persist or if there are any questions or concerns that arise at home. Special discussion: I discussed with the patient/guardian in detail that at this point there is no indication for admission to the hospital. It is understood, however, that if the symptoms persist or worsen the patient needs to return immediately for re-evaluation. 20:49 ED course: + interstitial prominence on CXR. Possible pneumonia. Will dc home with abx rn given week long symptoms, active smoker, and dyspnea. . 01/12 20:08 Order name: XRAY Chest (1 view) rn Administered Medications: 20:55 Drug: Zithromax (azithromycin) 500 mg Route: PO; ll3 20:55 Follow up: Response: Medication administered at discharge. 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 Day 2, 3, 4 , 5 take one (1) tablet once daily.; 6 tablet; Refills: 0, Product Selection Permitted Signatures: Dispatcher [employer] Jake Avelar MD MD rn Loubet, Lynsea, RN RN ll3
--- NOTE | 2022-01-12 20:49 | ER ---
Nurse's Notes [facility] Name: Luis Humphreys Age: 61 yrs Sex: Male : 1960 Arrival Date: 01/12/2022 Time: 20:03 Bed 11 Private MD: Diagnosis: Cough;Dyspnea, unspecified Presentation: 01/12 20:28 Chief complaint: Patient states: States "I've got a lot of mucus in my chest and when I ll3 cough it wont come up, C/o pain 10/10 in flank area when coughing. Coronavirus screen: Vaccine status: Patient reports receiving the 2nd dose of the covid vaccine. cough unrelated to allergies. Ebola Screen: No symptoms or risks identified at this time. Initial Sepsis Screen: Does the patient meet any 2 criteria? No. Patient's initial sepsis screen is negative. Does the patient have a suspected source of infection? No. Patient's initial sepsis screen is negative. Risk Assessment: Do you want to hurt yourself or someone else? Patient reports no desire to harm self or others. Onset of symptoms was January 05, 2022. 20:28 Method Of Arrival: Ambulatory ll3 20:28 Acuity: GERALD 3 ll3 Triage Assessment: 20:31 General: Appears uncomfortable, Behavior is calm, cooperative. Pain: Complains of pain ll3 in anterior aspect of left lateral abdomen and anterior aspect of right lateral abdomen Pain currently is 0 out of 10 on a pain scale. at worst was 10 out of 10 on a pain scale. Aggravated by Coughing. Neuro: Level of Consciousness is awake, alert, obeys commands, Oriented to person, place, time, situation. Respiratory: Reports cough that is productive, persistent Respiratory effort is even, unlabored, Respiratory pattern is regular, symmetrical, Onset: The symptoms/episode began/occurred States cough started about a week ago.. Respiratory: Derm: Skin is pink, warm \\T\\ dry. Historical: - Home Meds: 20:31 carbamazepine 100 mg Oral chew 2 tabs every 12 hours [Active]; gabapentin 600 mg Oral ll3 tab 2 tab twice daily [Active]; - PMHx: 20:31 Asthma; Back pain; Hypertensive disorder; nerve pain right side of face; ll3 Hypercholesterolemia; Hypertensive disorder; - Immunization history:: Client reports receiving the 2nd dose of the Covid vaccine. - Social history:: Smoking status: Patient reports the use of cigarette tobacco products, smokes one-half pack cigarettes per day. - Family history:: not pertinent. - Hospitalizations: : No recent hospitalization is reported. Screenin:34 Abuse screen: Denies threats or abuse. Nutritional screening: No deficits noted. ll3 Tuberculosis screening: No symptoms or risk factors identified. 20:56 Fall Risk None identified. ll3 Assessment: 20:34 General: See triage assessment. . Cardiovascular:. Cardiovascular: Rhythm is. ll3 Respiratory: Airway is patent Respiratory: Respiratory effort is even, unlabored, Respiratory pattern is regular, symmetrical. Vital Signs: 20:28 BP 171 / 68; Pulse 85; Resp 20; Temp 99.5(TE); Pulse Ox 95% on R/A; Weight 104.33 kg ll3 (R); Height 6 ft. 1 in. (185.42 cm) (R); 20:28 Body Mass Index 30.34 (104.33 kg, 185.42 cm) ll3 ED Course: 20:03 Patient arrived in ED. bp1 20:07 Jake Vazquez MD is Attending Physician. rn 20:28 Eliazar Echeverria RN is Primary Nurse. ll3 20:31 Triage completed. ll3 20:31 Arm band placed on Patient placed in an exam room, on a stretcher, on pulse oximetry. ll3 20:34 Patient has correct armband on for positive identification. Bed in low position. Call ll3 light in reach. Side rails up X 1. 20:56 XRAY Chest (1 view) In Process Unspecified. EDMS 20:56 No provider procedures requiring assistance completed. Patient did not have IV access ll3 during this emergency room visit. Administered Medications: 20:55 Drug: Zithromax (azithromycin) 500 mg Route: PO; ll3 20:55 Follow up: Response: Medication administered at discharge. ll3 Outcome: 20:48 Discharge ordered by . rn 20:56 Discharged to home ambulatory. ll3 20:56 Condition: stable 20:56 Discharge instructions given to patient, Instructed on discharge instructions, follow up and referral plans. medication usage, Demonstrated understanding of instructions, follow-up care, medications, Prescriptions given X 1. 20:56 Patient left the ED. ll3 Signatures: Dispatcher [employer] EDMS Vazquez, Jake, MD MD rn Ellen Chen Lynsea, RN RN ll3
[2022-01-12] MEDS ORDERED: AZITHROMYCIN 250 MG TAB ONE (20:54)
--- NOTE | 2022-01-12 23:09 | RAD REPORT ---
EXAM DESCRIPTION: RAD - Chest Single View - 01/12/2022 8:55 pm CLINICAL HISTORY: COUGH Chest pain. COMPARISON: Chest Single View dated 03/30/2021; Chest Single View dated 09/01/2019; Chest Pa And Lat (2 Views) dated 11/23/2016; Chest Single View dated 11/23/2016 FINDINGS: Portable technique limits examination quality. Mild prominence of interstitial markings bilaterally. This may indicate a viral infection. The heart is normal in size. No displaced fractures.
[2022-01-13 01:38] VITALS: BP 171/68; TEMP 99.5; O2SAT 95
== END 2022-01-12 20:56 | disposition home or self-care (01) ==
LOC: ER 20:01
DX: R05.9 Cough, unspecified (principal); R06.00 Dyspnea, unspecified; J45.909 Unspecified asthma, uncomplicated; F17.210 Nicotine dependence, cigarettes, uncomplicated; I10 Essential (primary) hypertension
CPT/HCPCS: 71045; 99284

== ENCOUNTER 2024-08-24 13:34 | Emergency (ER) | payer BC ==
--- OUTSIDE RECORDS SUMMARY | 2024-08-24 13:37 | XMS REPORT | Continuity of Care Document ---
Author Name Unknown Address [address] [facility] [address] [place] [address] [facility] Address [address] [place] [address] Care Team Providers Care Artillery Specialist Name Role Phone Akbar Melendez Attending Clinician Akbar Su Admitting Clinician Christian e Payers Payer Name Policy Type Policy Number Effective Date Expirati on Date Source Allergies, Adverse Reactions, Alerts Allergy Name Allergy Type Status Severity Reaction(s) Onset Date Inactive Date Treating Clinician Comments Source No Known Allergie s DA Active U 05-15 00:00: 00 [facility] Encounters Start Date/Time End Date/Time Encounter Type Admission Type Attending Clinicians Care Facility Care Department Encounter ID Source 2024-05-20 05:44:00 2024-05-20 05:44:00 Outpatient Akbar Crawley [facility] ENDO [id number] [address] [facility] Results Test Description Test Time Test Comments Results Result Co mments Source BASIC METABOLIC [id number] 11:03:00* Test Item Value Reference Range Interpretation Comme nts SODIUM (test code = NA) 143 mmol/L 136-145 N POTASSIUM (test code = K) 3.7 mmol/L 3.4-5.0 N CHLORIDE (test code = CL) 108 mmol/L 98-107 H CARBON DIOXIDE (test code = CO2) 30 mmol/L 21-32 N ANION GAP (test code = GAP) 5 GAP calc 4-15 N GLUCOSE (test code = GLU) 99 MG/DL 70-110 N BLOOD UREA NITROGEN (test code = BUN) 13 MG/DL 7-18 N GLOMERULAR FILTRATION RATE (test code = GFR) >=60 max estimate estGFR >60 The Glomerular Filtration Rate is a calculated parameterbased on serum Creatinine, patient age and sex. GFR valuesless than 60 mL/min/1.73 square meters are indicative ofChronic Kidney Disease. Values less than 15 mL/min/1.73square meters indicate Kidney failure. The calculation forGFR is based on the CKD-EPI (2020) calculation. This formulais race indifferent and is the recommended formula for GFRby the National Kidney Foundation for Adults.The GFR will not calculate if the sex is unknown or if thepatient's age is <18 years. CREATININE (test code = CREAT) 1.1 MG/DL 0.6-1.0 H CALCIUM (test code = CA) 9.1 MG/DL 8.5-10.1 N CBC W/O [id number] 10:55:00* Test Item Value Reference Range Interpretation Comme nts WHITE BLOOD CELL (test code = WBC) 4.5 K/mm3 3.5-11.0 N RED BLOOD CELL (test code = RBC) 3.99 M/mm3 4.70-6.10 L HEMOGLOBIN (test code = HGB) 12.7 G/DL 12.3-15.9 N HEMATOCRIT (test code = HCT) 37.4 % 35.8-46.7 N MEAN CELL VOLUME (test code = MCV) 93.7 Fl 86.3-98.9 N MEAN CELL HGB (test code = MCH) 31.8 pg 28.9-34.4 N MEAN CELL HGB CONCETRATION ( test code = MCHC) 34.0 G/DL 32.1-34.5 N RED CELL DISTRIBUTION WIDTH (test code = RDW) 13.1 SD 11.5-14.5 N PLATELET COUNT (test code = PLT) 164 K/mm3 150-450 N MEAN PLATELET VOLUME (test c ode = MPV) 8.10 fL 7.0-9.6 N Notes Date/Time Note Provider Source 2024-05-20 09:49:00 [facility] ([facility]) Post Anesthesia Evaluation REPORT#:[id number] REPORT STATUS: Signed REPORT INITIALIZATION DATE:05/20/24 TIME:948 PATIENT: VICTORINA LEWIS UNIT #: [id number] ROOM/BED: : 58 AGE: 63 SEX: M ATTEND: Akbar Melendez MD ADM AUTHOR: Jhonny Holland MD REPT SERVICE DT/TIME: 05/20/24 0949 * ALL edits or amendments must be made on the electronic/computer document * General Post-op: post surgery rounds Post Anesthesia Evaluation Anes. changes from pre-op eval ORM Surgeries: Surgery Date and Time: 05/20/2024 08 Proposed Primary Procedure: COLONOSCOPY DIAGNOSTIC Anesthetic: TIVA Date: 05/20/24 Level of consciousness: patient awake Vital signs: Last Documented: Result Date Time Pulse Ox 100 05/20 912 B/P 177/84 05/20 912 O2 Delivery Room air 05/20 912 Pulse 65 05/20 912 Resp 16 05/20 09 Temp 36.6 05/20 0835 Cardiovascular: no change Respiratory/Airway: respiratory system stable Pain: adequately controlled Hydration: adequate Temp status: normothermic Presence of N/V: no Anesthesia complications: no at 0950 RPT #: [id number] END OF REPORT [facility] 2024-05-20 08:04:00 [id number] [address] PATIENT NAME: VICTORINA LEWIS ADMIT DATE: 05/20/24 ACCOUNT NO: [id number] ROOM NO: AGE: 63 REPORT TYPE: ENDOSCOPY REPORT SEX: M ADMITTING PHYSICIAN: ATTENDING PHYSICIAN: Akbar Melendez MD Patient Name: Victorina Lewis Procedure Date: 05/20/2024 8:04 AM Date of : 1960 Gender: Male Attending MD: Akbar Melendez , Procedure: Colonoscopy Indications: Screening for colorectal malignant neoplasm Providers: Akbar Melendez (Doctor), Delia Dueñas RN (Nurse) Referring MD: Akbar Melendez Requesting Provider: Medicines: See the Anesthesia note for documentation of the administered medications Complications: No immediate complications. Procedure: Pre-Anesthesia Assessment: - Prior to the procedure, a History and Physical was performed, and patient medications and allergies were reviewed. The patient is competent. The risks and benefits of the procedure and the sedation options and risks were discussed with the patient. All questions were answered and informed consent was obtained. Patient identification and proposed procedure were verified by the physician, the nurse and the anesthesiologist in the procedure room. Mental Status Examination: alert and oriented. Airway Examination: normal oropharyngeal airway and neck mobility. Respiratory Examination: clear to auscultation. CV Examination: normal. Prophylactic Antibiotics: The patient does not require prophylactic antibiotics. Prior Anticoagulants: The patient has taken no previous anticoagulant or antiplatelet agents. ASA Grade Assessment: II - A patient with mild systemic disease. After reviewing the risks and benefits, the patient was deemed in satisfactory condition to undergo the procedure. The anesthesia plan was to use monitored anesthesia care (MAC). Immediately prior to administration of medications, the patient was re-assessed for adequacy to receive sedatives. The heart rate, respiratory rate, oxygen saturations, blood pressure, adequacy of pulmonary ventilation, and PATIENT NAME: VICTORINA LEWIS response to care were monitored throughout the procedure. The physical status of the patient was re-assessed after the procedure. After I obtained informed consent, the scope was passed under direct vision. Throughout the procedure, the patient's blood pressure, pulse, and oxygen saturations were monitored continuously. The Colonoscope was introduced through the anus and advanced to the cecum, identified by appendiceal orifice and ileocecal valve. The colonoscopy was performed without difficulty. The patient tolerated the procedure well. The quality of the bowel preparation was evaluated using the BBPS ([place] Bowel Preparation Scale) with scores of: Right Colon = 2 (minor amount of residual staining, small fragments of stool and/or opaque liquid, but mucosa seen well), Transverse Colon = 2 (minor amount of residual staining, small fragments of stool and/or opaque liquid, but mucosa seen well) and Left Colon = 2 (minor amount of residual staining, small fragments of stool and/or opaque liquid, but mucosa seen well). The total BBPS score equals 6. The quality of the bowel preparation was fair. Findings: The perianal and digital rectal examinations were normal. A few small-mouthed diverticula were found in the sigmoid colon. Two sessile polyps were found in the ascending colon. The polyps were 5 to 6 mm in size. These polyps were removed with a cold snare. Resection and retrieval were complete. Verification of patient identification for the specimen was done by the physician and nurse using the patient's name and date. Estimated blood loss was minimal. A 7 mm polyp was found in the hepatic flexure. The polyp was sessile. The polyp was removed with a hot snare. Resection and retrieval were complete. Verification of patient identification for the specimen was done by the physician and nurse using the patient's name and date. Estimated blood loss was minimal. An 18 mm polyp was found in the distal descending colon. The polyp was sessile. Area was successfully injected with 5 mL Eleview for a lift polypectomy. The polyp was removed with a hot snare. Resection and retrieval were complete. Verification of patient identification for the specimen was done by the physician and nurse using the patient's name and date. To prevent bleeding post-intervention, one hemostatic clip was successfully placed. There was no bleeding at the end of the procedure. A 25 mm polyp was found in the distal sigmoid colon. The polyp was pedunculated. The polyp was removed with a hot snare. Resection and retrieval were complete. Verification of patient identification for the specimen was done by the physician and nurse using the patient's name and date. Estimated blood loss: none. To prevent bleeding post-intervention, one hemostatic clip was successfully placed. There was no bleeding at the end of the procedure. Internal hemorrhoids were found during retroflexion. The hemorrhoids were Grade I (internal hemorrhoids that do not prolapse). PATIENT NAME: VICTORINA LEWIS Impression: - Preparation of the colon was fair. - Diverticulosis in the sigmoid colon. - Two 5 to 6 mm polyps in the ascending colon, removed with a cold snare. Resected and retrieved. - One 7 mm polyp at the hepatic flexure, removed with a hot snare. Resected and retrieved. - One 18 mm polyp in the distal descending colon, removed with a hot snare. Resected and retrieved. Injected. Clip was placed. - One 25 mm polyp in the distal sigmoid colon, removed with a hot snare. Resected and retrieved. Clip was placed. - Internal hemorrhoids. Recommendation: - Patient has a contact number available for emergencies. The signs and symptoms of potential delayed complications were discussed with the patient. Return to normal activities tomorrow. Written discharge instructions were provided to the patient. - Discharge patient to home. - Await pathology results. - Return to GI clinic in 2 weeks. - Repeat colonoscopy in 1 year for surveillance of multiple polyps. Akbar Melendez, 05/20/2024 8:44:53 AM Number of Addenda: 0 Note Initiated On: 05/20/2024 8:04 AM Scope Withdrawal Time 0 hours 17 minutes 52 seconds Estimated Blood Loss: Estimated blood loss was minimal. Scope In: 8:08:21 AM Scope Out: 8:28:52 AM [address] [place] [address] Provation {[id number]}.pdf ProVation FT PDF at 0845 PATIENT NAME: VICTORINA LEWIS [facility] 2024-05-15 10:40:00 [id number] [facility] [address] [place] [address] PATIENT NAME: VICTORINA LEWIS ADMIT DATE: ACCOUNT NO: [id number] ROOM NO: AGE: 63 REPORT TYPE: eELECTROCARDIOGRAM SEX: M ADMITTING PHYSICIAN: ATTENDING PHYSICIAN: Akbar Melendez MD Order: [id number] Test Reason : PREOP Test Date/Time Stamp: SatMay 15 2024 10:40:23 Blood Pressure : / mmHG Vent. Rate : 059 BPM Atrial Rate : 059 BPM P-R Int : 162 ms QRS Dur : 094 ms QT Int : 380 ms P-R-T Axes : 083 063 068 degrees QTc Int : 376 ms Sinus bradycardia Otherwise normal ECG No previous ECGs available Confirmed by Guerline Ross ([id number]) on 05/18/2024 4:57:53 PM Referred By: Akbar Melendez Confirmed by:Guerline Ross at [id number] PATIENT NAME: VICTORINA LEWIS [facility]
[2024-08-24 13:56] LABS: Absolute Eosinophils 0.1 K/uL (0-0.5); Absolute Lymphocytes (CBC) 0.8 K/uL (0.7-4.9); Absolute Monocytes 0.4 K/uL (0.1-1.3); Absolute Neutrophil 1.9 K/uL (1.8-8.0); Basophils % 0.9 % (0-1.3); Eosinophils % 2.2 % (0-4.4); Hematocrit 38.9 % (39.6-49.0); Hemoglobin 12.9 g/dL (13.6-17.9); Lymphocytes % 26.4 % (15.3-44.8); MCHC 33.2 g/dL (32.0-36.0); MCV 96.2 fL (80-100); MPV 6.8 fL (7.6-11.3); Monocytes % 11.1 % (3.3-12.3); Neutrophils % 59.4 % (41.7-73.7); Nucleated Red Blood Cells % 0.1 % (0-0); Platelets 179 thou/uL (152-406); RBC Red Blood Cell Count 4.04 M/uL (4.33-5.43)
[2024-08-24 14:00] LABS: PT Prothrombin Time 12.8 SECONDS (9.4-12.5); Protime INR 1.15
--- NOTE | 2024-08-24 14:04 | RAD REPORT ---
EXAM: CT Head Brain Wo Cont HISTORY: AMS COMPARISON: 08/24/2024 TECHNIQUE: Multiple contiguous axial images were obtained for a CT of the brain without contrast. Sag ittal and coronal reformats were performed. One or more of the following dose reduction techniques were used: Automated exposure control, adjus tment of the mA and kV according to patient size, and iterative reconstruction. Unless otherwise specified, incidental findings do not require dedicated imaging follow-up. FINDINGS: No evidence of hydrocephalus, intracranial hemorrhage, or extra-axial fluid collection. Mild brain atrophy with mild periventricular and deep white matter chronic microvascular ischemic ch anges present. The calvarium is intact. The visualized paranasal sinuses and mastoid air cells are essentially clear . IMPRESSION: No evidence of acute intracranial abnormality.
--- NOTE | 2024-08-24 14:09 | RAD REPORT ---
EXAMINATION: CTA HEAD CLINICAL INDICATION: Male, 63 years old. DIZZINESS TECHNIQUE: Axial CT images were obtained through the head after intravenous contrast utilizing angiog raphic protocol with 3D post-processing (maximum intensity projection images, volume rendered images and/or shaded surface rendered images). One or more of the following dose reduction technique s were used: Automated exposure control, adjustment of the mA and/or kV according to patient size, and/or iterative reconstruction. Unless otherwise specified, incidental findings do not require dedic ated imaging follow-up. COMPARISON: Noncontrast head CT of the same day FINDINGS: ICA: The petrous, cavernous, and supraclinoid segments of the bilateral internal carotid arteries are normal. SEVEN: Anterior cerebral arteries are normal bilaterally. The anterior communicating artery is patent. MCA: Middle cerebral arteries are normal bilaterally. FACILITIES ASSISTANT: Posterior cerebral arteries are normal bilaterally. Vertebrobasilar: The vertebral arteries are patent. The basilar artery is normal in appearance. 3D images confirm these findings. IMPRESSION: Normal head CTA.
--- NOTE | 2024-08-24 14:09 | RAD REPORT ---
EXAMINATION: CT Neck Angio CLINICAL INDICATION: Male, 63 years old. [facility] dizzines Bed Name: 15 TECHNIQUE: Axial CT images were obtained from the aortic arch to the skull base after intravenous con trast utilizing angiographic protocol. Multiplanar reformats, as well as 3D post-processing (maximum intensity projection images, volume rendered images and/or shaded surface rendered images) w ere generated and reviewed. One or more of the following dose reduction techniques were used: Automated exposure control, adjustment of the mA and/or kV according to patient size, and/or iterativ e reconstruction. Unless otherwise specified, incidental findings do not require dedicated imaging follow-up. COMPARISON: No prior exam. FINDINGS: AORTA: The imaged aortic arch is normal. Normal three-vessel configuration of the arch. CCA: No artifact The common carotid arteries are patent and normal in caliber. ICA/ECA: Bilateral internal and external carotid arteries are patent. There is no significant interna l carotid artery stenosis. VERTEBRAL: The cervical vertebral arteries are patent to the skull base. Vertebral arteries are codom inant. SOFT TISSUE: No significant neck soft tissue abnormalities. The visualized lung apices are clear. 3D images confirm these findings. IMPRESSION: No significant flow abnormality of the neck vessels is identified. NASCET criteria used to quantify ICA stenosis, with the following grading scheme: Mild 0-49% stenosis Moderate 50-69% stenosis Severe 70-99% stenosis Reference: [place] Symptomatic Carotid Endarterectomy Trial Collaborators; Steve SABA, Ana BYNUM, Charity RB, et al. Beneficial effect of carotid endarterectomy in symptomatic patients with high-grade carotid stenosis. N Engl J Med. 1990May 14;325(7):445-53.
[2024-08-24 14:47] LABS: Anion Gap 6.6 mEq/L (5.0-15.0); Potassium 4.6 mEq/L (3.5-5.1); Troponin High Sensitivity 5.2 pg/mL (<58.9)
--- NOTE | 2024-08-24 14:56 | RAD REPORT ---
EXAMINATION: ONE VIEW CHEST XR CLINICAL INDICATION: Male, 63 years old.,COUGH TECHNIQUE: Frontal chest projection is submitted. Examination is limited by patient positioning and t echnique. COMPARISON: 01/12/2022 FINDINGS: The lungs are well inflated and clear. No pneumothorax or sizable effusion. The heart is normal in s ize. Mediastinal contours are unremarkable. IMPRESSION: No acute intrathoracic abnormalities.
[2024-08-24 15:09] LABS: Specific Gravity > 1.030 (1.005-1.030); Sqamous Epithelial None Seen /HPF (None Seen); Urine Bacteria None Seen /HPF (<20); Urine Bilirubin NEGATIVE (Negative); Urine Blood Negative (Negative); Urine Clarity Clear (Clear); Urine Color Light-Yellow (Yellow); Urine Culture Reflex Order NOT NEEDED; Urine Glucose NEGATIVE (Negative); Urine Ketones NEGATIVE (Negative); Urine Micro Reflex YN NO BILL MICROSCOPIC; Urine Nitrite NEGATIVE (Negative); Urine Protein NEGATIVE (Negative); Urine RBC <5 /HPF (None Seen); Urine Urobilinogen Normal (Normal); Urine WBC <5 /HPF (<5)
--- NOTE | 2024-08-24 15:57 | ER ---
Nurse's Notes [facility] Name: Luis Humphreys Age: 63 yrs Sex: Male : 1960 Arrival Date: 08/24/2024 Time: 13:34 Bed 15 Private MD: Diagnosis: Weakness Presentation: 08/24 13:37 Chief complaint: EMS states: toned out for numbness/tingling/weakness to BLE. On me1 arrival EMS noted slurred speech as well. Patient reports numbness and tingling/weakness has been intermittent today since 04:35. Reports he had some blurred vision even with his glasses on earlier today. Coronavirus screen: Vaccine status: Patient reports receiving the 2nd dose of the covid vaccine. Ebola Screen: No symptoms or risks identified at this time. No acute neurological deficit is noted. Pre-hospital glucose is not applicable to this patient. Initial Sepsis Screen: Does the patient meet any 2 criteria? No. Patient's initial sepsis screen is negative. Does the patient have a suspected source of infection? No. Patient's initial sepsis screen is negative. Risk Assessment: Do you want to hurt yourself or someone else? Patient reports no desire to harm self or others. Onset of symptoms was August 24, 2024 at 04:35. 13:37 Method Of Arrival: EMS: [facility] 13:37 Acuity: GERALD 3 me1 Triage Assessment: 13:39 The onset of the patients symptoms was August 24, 2024 at 04:35. General: Appears in me1 no apparent distress. comfortable, well groomed, well developed, well nourished, Behavior is calm, cooperative, appropriate for age. Pain: Denies pain. EENT: No signs and/or symptoms were reported regarding the EENT system. Neuro: Level of Consciousness is awake, alert, obeys commands, Oriented to person, place, time, situation, Appropriate for age Electroplater Apprentice are equal bilaterally Moves all extremities. Full function Gait is steady, Speech is normal, Facial symmetry appears normal, Pupils are PERRLA, Intact Reports blurred vision intermittent this morning numbness weakness to BLE that has been intermittent this morning. Cardiovascular: Patient's skin is warm and dry. Respiratory: Airway is patent Respiratory effort is even, unlabored, Respiratory pattern is regular, symmetrical. GI: No signs and/or symptoms were reported involving the gastrointestinal system. : No signs and/or symptoms were reported regarding the genitourinary system. Derm: Skin is intact, is healthy with good turgor, Skin is pink, warm \T\ dry. Musculoskeletal: No signs and/or symptoms reported regarding the musculoskeletal system. Stroke Activation: Physician: ED Attending; Name: ; Notified At: ; Arrived At: Physician: Mid-Level Provider; Name: ; Notified At: ; Arrived At: Physician: [not used]; Name: ; Notified At: ; Arrived At: Physician: [not used]; Name: ; Notified At: ; Arrived At: Physician: [not used]; Name: ; Notified At: ; Arrived At: 13:37 n/a me1 Historical: - Allergies: 13:39 No Known Drug Allergies; me1 - PMHx: 13:39 Asthma; Back pain; Hypercholesterolemia; Hypertensive disorder; Hypertensive disorder; me1 nerve pain right side of face; - PSHx: 13:39 None; me1 - Immunization history:: Adult Immunizations up to date. - Infectious Disease History:: Denies. - Social history:: Smoking status: Patient reports the use of cigarette tobacco products, smokes one-half pack cigarettes per day. Screenin:41 [facility] ED Fall Risk Assessment (Adult) History of falling in the last 3 months, me1 including since admission No falls in past 3 months (0 pts) Confusion or Disorientation No (0 pts) Intoxicated or Sedated No (0 pts) Impaired Gait No (0 pts) Mobility Assist Device Used No (0 pt) Altered Elimination No (0 pt) Score/Fall Risk Level 0 - 2 = Low Risk Maintained a safe environment, Provided non-skid footwear, Hourly rounding (assess needs \T\ fall precautionary measures) done. Abuse screen: Denies threats or abuse. Nutritional screening: No deficits noted. Tuberculosis screening: No symptoms or risk factors identified. Assessment: 13:41 VAN Scoring: Arm Drift: Visual Disturbance: No visual disturbance noted. Aphasia: No me1 aphasia noted. Neglect: No neglect noted. April Swallow Protocol Exclusion Criteria: Brief Cognitive Screen What is your name? Normal, Where are you right now? Normal, What year is it? Normal. Oral Mechanism Examination Facial Symmetry: Normal, Motion: Normal, Lip Closure: Normal, Oral Mechanism Result: Normal. 3 oz Water Swallow Challenge: Pt able to drink all water without stopping, coughing, choking or throat clearing: Yes Result: PASS MD Notified: Jose Daniel Soto MD. TNKase (Tenecteplase) Screening: Contraindications: Patient reports onset of signs and symptoms of stroke greater than 6 hours ago: Yes. General: See triage assessment. . Vital Signs: 13:37 BP 153 / 67; Pulse 68; Resp 18; Temp 98.4; Pulse Ox 100% ; Weight 92.53 kg; Height 6 me1 ft. 1 in. ; Pain 0/10; 14:00 BP 165 / 76; Pulse 66; Resp 16; Pulse Ox 100% ; me1 15:00 BP 161 / 77; Pulse 62; Resp 16; Pulse Ox 100% ; me1 15:45 BP 165 / 75; Pulse 62; Resp 15; Temp 98.4; Pulse Ox 99% ; me1 13:37 Body Mass Index 26.91 (92.53 kg, 185.42 cm) me1 13:37 Pain Scale: Adult me1 NIH Stroke Scale Scores: 13:40 NIHSS Score: 0 ec2 13:41 NIHSS Score: 0 pa1 ED Course: 13:35 Patient arrived in ED. ec2 13:35 Jose Daniel Soto MD is Attending Physician. ec2 13:36 Laurie Márquez, JEAN PAUL is Primary Nurse. me1 13:39 Triage completed. me1 13:39 Arm band placed on Patient placed in an exam room. me1 13:41 Patient has correct armband on for positive identification. Bed in low position. Call [facility] light in reach. Side rails up X2. Provided Education on: POC. Verbalized understanding. . Client placed on continuous cardiac and pulse oximetry monitoring. NIBP monitoring applied. site monitor on. Pulse ox on. NIBP on. 13:41 No provider procedures requiring assistance completed. me1 13:44 Basic Metabolic Panel Sent. me1 13:44 CBC with Diff Sent. me1 13:44 PT-INR Sent. me1 13:44 Troponin HS Sent. me1 13:46 Initial lab(s) drawn, by ED staff, sent to lab. Inserted saline lock: 20 gauge in right me1 antecubital area, using aseptic technique. 14:00 CT Head Brain wo Cont In Process Unspecified. EDMS 14:00 CT Head Angio In Process Unspecified. EDMS 14:00 CT Neck Angio In Process Unspecified. EDMS 14:21 XRAY Chest (1 view) In Process Unspecified. EDMS 14:38 EKG done, by ED staff, reviewed by Jose Daniel Soto MD. me1 15:58 Leighton Vyas MD is Referral Physician. ec2 15:58 Harvey Kim MD is Referral Physician. ec2 16:06 IV discontinued, intact, bleeding controlled, No redness/swelling at site. Pressure me1 dressing applied. Administered Medications: No medications were administered Medication: 13:41 VIS not applicable for this client. me1 Outcome: 15:57 Discharge ordered by MD. ec2 16:06 Discharged to home ambulatory, with significant other, me1 16:06 Condition: stable 16:06 Discharge instructions given to patient, significant other, Instructed on discharge instructions, follow up and referral plans. Demonstrated understanding of instructions, follow-up care, 16:06 Patient left the ED. me1 NIH Stroke Scale - NIH Stroke Score Date: 08/24/2024 Time: 13:40 Total Score = 0 10. Dysarthria (speech clarity - read or repeat words) - 0(Normal) 11. Extinction and Inattention (visual/tactile/auditory/spatial/personal) - 0(No abnormality) 1a. Level of Consciousness (LOC) - 0(Alert) 1b. Level of Consciousness (LOC) (Month \T\ Age) - 0(Both) 1c. LOC Commands (Open \T\ Closes Eyes/Prep Cook) - 0(Both) 2. Best Gaze (Lateral Gaze Paresis) - 0(Normal) 3. Visual Field Loss - 0(No visual loss) 4. Facial Palsy - 0(Normal) 5a. Left Arm: Motor (10-second hold) - 0(No drift) 5b. Right Arm: Motor (10-second hold) - 0(No drift) 6a. Left Leg: Motor (5-second hold - always test supine) - 0(No drift) 6b. Right Leg: Motor (5-second hold - always test supine) - 0(No drift) 7. Limb Ataxia (finger/nose \T\ heel/cruz - test with eyes open) - 0(Absent) 8. Sensory Loss (pinprick arms/legs/face) - 0(Normal) 9. Best Language: Aphasia (description/naming/reading) - 0(No aphasia) Initials: ec2 NIH Stroke Scale - NIH Stroke Score Date: 08/24/2024 Time: 13:41 Total Score = 0 10. Dysarthria (speech clarity - read or repeat words) - 0(Normal) 11. Extinction and Inattention (visual/tactile/auditory/spatial/personal) - 0(No abnormality) 1a. Level of Consciousness (LOC) - 0(Alert) 1b. Level of Consciousness (LOC) (Month \T\ Age) - 0(Both) 1c. LOC Commands (Open \T\ Closes Eyes/Prep Cook) - 0(Both) 2. Best Gaze (Lateral Gaze Paresis) - 0(Normal) 3. Visual Field Loss - 0(No visual loss) 4. Facial Palsy - 0(Normal) 5a. Left Arm: Motor (10-second hold) - 0(No drift) 5b. Right Arm: Motor (10-second hold) - 0(No drift) 6a. Left Leg: Motor (5-second hold - always test supine) - 0(No drift) 6b. Right Leg: Motor (5-second hold - always test supine) - 0(No drift) 7. Limb Ataxia (finger/nose \T\ heel/cruz - test with eyes open) - 0(Absent) 8. Sensory Loss (pinprick arms/legs/face) - 0(Normal) 9. Best Language: Aphasia (description/naming/reading) - 0(No aphasia) Initials: me1 Signatures: Dispatcher [employer] Laurie Lemus RN RN me1 Jose Daniel Soto MD MD ec2
--- NOTE | 2024-08-24 15:57 | EDPHYS ---
Physician Documentation [facility] Name: Luis Humphreys Age: 63 yrs Sex: Male : 1960 Arrival Date: 08/24/2024 Time: 13:34 Bed 15 Private MD: ED Physician Jose Daniel Soto HPI: 08/24 13:37 This 63 yrs old Black Male presents to ER via Unassigned with complaints of weakness, ec2 fatigue. 13:37 Patient arrives today for evaluation of general weakness, possible slurred speech for ec2 the last 12 approximately 0 430, approximately 9 hours prior to arrival. Symptoms have since resolved. He reports that he felt some general weakness in the bilateral lower extremities. States that he maybe had some slurred speech however states that this is since resolved. Patient reports that he had otherwise been in normal state of health prior to today. No vomiting, no diarrhea. No cough or cold symptoms. No urinary complaints. Patient reports history of hypertension. No previous history of stroke. Patient reports that he has had previous similar episodes of weakness and slurred speech that have also resolved.. Historical: - Allergies: 13:39 No Known Drug Allergies; me1 - PMHx: 13:39 Asthma; Back pain; Hypercholesterolemia; Hypertensive disorder; Hypertensive disorder; me1 nerve pain right side of face; - PSHx: 13:39 None; me1 - Immunization history:: Adult Immunizations up to date. - Infectious Disease History:: Denies. - Social history:: Smoking status: Patient reports the use of cigarette tobacco products, smokes one-half pack cigarettes per day. ROS: 13:38 Constitutional: as per hpi ec2 Exam: 13:38 Constitutional: GEN: NAD Head: atraumatic Eyes: EOMI Ears: External ears are ec2 normal. CV: regular rate LUNGS: no respiratory distress ABD: non-distended SKIN: no evidence of rashes MSK: no evidence of trauma. Neuro: Cranial nerves II through XII intact, strength intact all 4, normal [id number], no slurred speech appreciated, sensation intact extremities Vital Signs: 13:37 BP 153 / 67; Pulse 68; Resp 18; Temp 98.4; Pulse Ox 100% ; Weight 92.53 kg; Height 6 me1 ft. 1 in. ; Pain 0/10; 14:00 BP 165 / 76; Pulse 66; Resp 16; Pulse Ox 100% ; me1 15:00 BP 161 / 77; Pulse 62; Resp 16; Pulse Ox 100% ; me1 15:45 BP 165 / 75; Pulse 62; Resp 15; Temp 98.4; Pulse Ox 99% ; me1 13:37 Body Mass Index 26.91 (92.53 kg, 185.42 cm) me1 13:37 Pain Scale: Adult me1 NIH Stroke Scale Scores: 13:40 NIHSS Score: 0 ec2 13:41 NIHSS Score: 0 me1 MDM: 13:38 Medical Screening Exam initiated ec2 13:39 Data reviewed: vital signs, nurses notes. ED course: Patient arrives today for ec2 evaluation of general weakness and possible syncope status since resolved. Examination is remarkable for well-appearing neuro intact individuals otherwise in no acute distress with a reassuring neurologic examination. Will obtain lab work, CT scan of the head, CT angio. Differential includes electrolyte disturbances, anemia, urinary tract infection.. 14:12 ED course: CT imaging is unremarkable.. ec2 14:39 ED course: EKG independently reviewed and interpreted by me, shows NSR, rate of 62, no ec2 acute ST segment elevation, intervals non-concerning. . 15:21 ED course: Metabolic profile unrevealing. Urine noninfectious, troponin within normal ec2 ranges. Chest x-ray shows no acute intrathoracic process. CBC is reassuring. On reassessment patient is well-appearing no acute distress. Will discharge home have the patient follow-up with PCP. Doubt TIA given lack of focal symptoms, doubt infection given lack of specific infectious symptoms. Additionally patient with intermittent symptoms ongoing for months to years and can follow-up outpatient.. 08/24 13:36 Order name: Basic Metabolic Panel; Complete Time: 15: ec2 08/24 13:36 Order name: CBC with Diff; Complete Time: 14: ec2 08/24 13:36 Order name: PT-INR; Complete Time: 14: ec2 08/24 13:36 Order name: Troponin HS; Complete Time: 15: ec2 08/24 13:36 Order name: UAM; Complete Time: 15: ec2 08/24 13:36 Order name: XRAY Chest (1 view); Complete Time: 15: ec2 08/24 13:36 Order name: CT Head Brain wo Cont; Complete Time: 14:11 ec2 08/24 13:36 Order name: CT Head Angio; Complete Time: 14:11 ec2 08/24 13:36 Order name: CT Neck Angio; Complete Time: 14:11 ec2 08/24 13:36 Order name: EKG; Complete Time: 13:36 ec2 08/24 13:36 Order name: Cardiac monitoring; Complete Time: 14:38 ec2 08/24 13:36 Order name: EKG - Nurse/Tech; Complete Time: 14:38 ec2 08/24 13:36 Order name: IV Saline Lock; Complete Time: 14:26 ec2 08/24 13:36 Order name: Labs collected and sent; Complete Time: 13:43 ec2 08/24 13:36 Order name: O2 Per Protocol; Complete Time: 13:44 ec2 08/24 13:36 Order name: O2 Sat Monitoring; Complete Time: 13:44 ec2 Administered Medications: No medications were administered Disposition Summary: 08/24/24 15:57 Discharge Ordered Notes: Location: Home ec2 Condition: Stable ec2 Diagnosis - Weakness ec2 Followup: ec2 - With: Private Physician - When: - Reason: Re-evaluation by your physician Followup: ec2 - With: Leighton Vyas MD - When: - Reason: Recheck today's complaints Followup: ec2 - With: Harvey Kim MD - When: - Reason: Recheck today's complaints Discharge Instructions: - Discharge Summary Sheet ec2 - Near-Syncope ec2 - Weakness, [id number] ec2 Forms: - Medication Reconciliation Form ec2 - Antibiotic Education ec2 - Prescription Opioid Use ec2 - Patient Portal Instructions ec2 - Leadership Thank You Letter ec2 NIH Stroke Scale - NIH Stroke Score Date: 08/24/2024 Time: 13:40 Total Score = 0 10. Dysarthria (speech clarity - read or repeat words) - 0(Normal) 11. Extinction and Inattention (visual/tactile/auditory/spatial/personal) - 0(No abnormality) 1a. Level of Consciousness (LOC) - 0(Alert) 1b. Level of Consciousness (LOC) (Month \T\ Age) - 0(Both) 1c. LOC Commands (Open \T\ Closes Eyes/Watch Train Inspector) - 0(Both) 2. Best Gaze (Lateral Gaze Paresis) - 0(Normal) 3. Visual Field Loss - 0(No visual loss) 4. Facial Palsy - 0(Normal) 5a. Left Arm: Motor (10-second hold) - 0(No drift) 5b. Right Arm: Motor (10-second hold) - 0(No drift) 6a. Left Leg: Motor (5-second hold - always test supine) - 0(No drift) 6b. Right Leg: Motor (5-second hold - always test supine) - 0(No drift) 7. Limb Ataxia (finger/nose \T\ heel/cruz - test with eyes open) - 0(Absent) 8. Sensory Loss (pinprick arms/legs/face) - 0(Normal) 9. Best Language: Aphasia (description/naming/reading) - 0(No aphasia) Initials: ec2 NIH Stroke Scale - NIH Stroke Score Date: 08/24/2024 Time: 13:41 Total Score = 0 10. Dysarthria (speech clarity - read or repeat words) - 0(Normal) 11. Extinction and Inattention (visual/tactile/auditory/spatial/personal) - 0(No abnormality) 1a. Level of Consciousness (LOC) - 0(Alert) 1b. Level of Consciousness (LOC) (Month \T\ Age) - 0(Both) 1c. LOC Commands (Open \T\ Closes Eyes/Watch Train Inspector) - 0(Both) 2. Best Gaze (Lateral Gaze Paresis) - 0(Normal) 3. Visual Field Loss - 0(No visual loss) 4. Facial Palsy - 0(Normal) 5a. Left Arm: Motor (10-second hold) - 0(No drift) 5b. Right Arm: Motor (10-second hold) - 0(No drift) 6a. Left Leg: Motor (5-second hold - always test supine) - 0(No drift) 6b. Right Leg: Motor (5-second hold - always test supine) - 0(No drift) 7. Limb Ataxia (finger/nose \T\ heel/cruz - test with eyes open) - 0(Absent) 8. Sensory Loss (pinprick arms/legs/face) - 0(Normal) 9. Best Language: Aphasia (description/naming/reading) - 0(No aphasia) Initials: me1 Signatures: Dispatcher [employer] Laurie Lemus RN RN me1 Jose Daniel Soto MD MD ec2 Corrections: (The following items were deleted from the chart) 13:36 13:36 BASIC METABOLIC PANEL+C.LAB.BRZ ordered. EDMS EDMS 13:36 13:36 CBC+H.LAB.BRZ ordered. EDMS EDMS 13:36 13:36 PROTIME (+INR)+COAG.LAB.BRZ ordered. EDMS EDMS 13:36 13:36 Troponin High Sensitivity+C.LAB.BRZ ordered. EDMS EDMS 13:36 13:36 Head Angio+CT.RAD.BRZ ordered. EDMS EDMS 13:36 13:36 Neck Angio+CT.RAD.BRZ ordered. EDMS EDMS 13:36 13:36 Urinalysis W/Microscopic+U.LAB.BRZ ordered. EDMS EDMS
[2024-08-24 17:51] VITALS: TEMP 98.4
[2024-08-24 18:04] VITALS: BP 165/75; O2SAT 99
--- NOTE | 2024-08-26 11:38 | EKG ---
Test Date: 2024-08-24 Test Time: 14:33:43 Senior Database Programmer: MEASUREMENT RESULTS: Intervals: Rate: 62 AR: 154 QRSD: 92 QT: 392 QTc: 397 [place]: P: 51 AR: 154 QRS: 42 T: 67 INTERPRETIVE STATEMENTS: Normal sinus rhythm Septal infarct, age undetermined Abnormal ECG Compared to ECG 03/30/2021 07:38:49 Myocardial infarct finding now present Electronically Signed On 08-26-24 11:34:21 APPLICATIONS PROJECT MANAGER by Dustin Iyer
== END 2024-08-24 16:06 | disposition home or self-care (01) ==
LOC: ER 13:34
DX: R53.1 Weakness (principal); R53.83 Other fatigue; J45.909 Unspecified asthma, uncomplicated; E78.00 Pure hypercholesterolemia, unspecified; I10 Essential (primary) hypertension; M54.9 Dorsalgia, unspecified; F17.210 Nicotine dependence, cigarettes, uncomplicated
CPT/HCPCS: 93005; 85025; 81001; 80048; 36415; 85610; 84484; 70450; 70496; 70498; 71045; 99285; Q9967